=== PATIENT | female | born 1980 | race African-American/Black ===

== ENCOUNTER → 2017-02-17 | Day surgery (SDC) | payer OTHER ==
[2017-02-04 15:16] VITALS: BMI 34.0
[~2017-02-17] VITALS: Ht 175.3 cm; Wt 104.5 kg
[~2017-02-17] MED LIST: LIDOCAINE HCL 2% 2 ML VIAL (20MG/ML) ONE; MIDAZOLAM HCL 1 MG/ML 2ML VIAL ONE; PANT40TA PO; PRENTAB26 PO; PROPOFOL IV EMULSION 10 MG/ML 20 ML VIAL IV ONE; SODIUM CHLORIDE 0.9% 500ML 500 ML IV ONE; VALA500T60 PO
[2017-02-17 14:59] VITALS: Ht 175.3 cm; Wt 104.5 kg
--- NOTE | 2017-02-17 15:47 | Endo History and Physical ---
History & Physical Date of Service: Feb 17, 2017. Chief Complaint: REFLUX DYSPHAGIA Referring Physician: DR Irineo GIVENS History of Present Illness 36 yo female who presents for EGD secondary to GERD and Dysphagia. Past Surgical History Hx Cardiac Surgery: No Hx Internal Defibrillator: No Hx Pacemaker: No Hx Abdominal Surgery: No Hx of Implantable Prosthesis: No Hx Post-Op Nausea and Vomiting: No Hx Cancer Surgery: No Hx Thoracic Surgery: No Hx Orthopedic: No Hx Urinary Tract Surgery: No Family History None Social History Smoking Status: Former Smoker Hx Substance Use: Yes (2008 MARIJUANA) Hx Alcohol Use: Yes (SOCIALLY) Allergies Coded Allergies: Quinine (Verified Allergy, Unknown, swelling, 02/17/17) Current Medications Reported Home Medications Medications Dose Route/Sig Max Daily Dose Days Date Category Vitamin (Prenat Multivit/[place]/Iron/Folic Ac) Tab 1 Tab PO QAM 02/04/17 Reported Protonix (Pantoprazole Sodium) 40 Mg Tab 40 Mg PO QAM 02/04/17 Reported Valtrex (Valacyclovir HCl) 500 Mg Tab 500 Mg PO BID PRN 02/04/17 Reported Vital Signs Weight (Kilograms): 104.55 Height (Feet): 5 Height (Inches): 9 Date Time Temp Pulse Resp B/P Pulse Ox O2 Delivery O2 Flow Rate FiO2 02/17/17 15:11 36.6 69 16 167/83 99 Room Air Physical Exam General Appearance: WD/WN, no apparent distress Respiratory/Chest: Auscultation: breath sounds normal Cardiovascular: Heart Auscultation: RRR Abdomen: Bowel Sounds: normal Inspection & Palpation: soft, non-distended, no tenderness, guarding & rebound Assessment and Plan Assessment: 36 yo female who presents for EGD secondary to GERD and Dysphagia. Plan: Proceed with EGD.
--- NOTE | 2017-02-17 16:06 | GI REPORT ---
Procedure Date: 02/17/2017 3:22 PM Procedure: Upper GI endoscopy Indications: Dysphagia, Gastro-esophageal reflux disease Medicines: Monitored Anesthesia Care Complications: No immediate complications. Estimated Blood Loss: Estimated blood loss: none. Procedure: Pre-Anesthesia Assessment: - Prior to the procedure, a History and Physical was performed, and patient medications and allergies were reviewed. The patient's tolerance of previous anesthesia was also reviewed. The risks and benefits of the procedure and the sedation options and risks were discussed with the patient. All questions were answered, and informed consent was obtained. Prior Anticoagulants: The patient has taken no previous anticoagulant or antiplatelet agents. ASA Grade Assessment: II - A patient with mild systemic disease. After reviewing the risks and benefits, the patient was deemed in satisfactory condition to undergo the procedure. After obtaining informed consent, the endoscope was passed under direct vision. Throughout the procedure, the patient's blood pressure, pulse, and oxygen saturations were monitored continuously. The scope was introduced through the mouth, and advanced to the second part of duodenum. The upper GI endoscopy was accomplished without difficulty. The patient tolerated the procedure well. Findings: No endoscopic abnormality was evident in the esophagus to explain the patient's complaint of dysphagia. It was decided, however, to proceed with dilation at the gastroesophageal junction. A TTS dilator was passed through the scope. Dilation with an 18-19-20 mm balloon (to a maximum balloon size of 20 mm) dilator was performed. The dilation site was examined and showed no change. Localized mild inflammation characterized by congestion (edema) was found in the gastric antrum. Biopsies were taken with a cold forceps for histology. The examined duodenum was normal. Impression: - No endoscopic esophageal abnormality to explain patient's dysphagia. Esophagus dilated. Dilated. - Gastritis. Biopsied. - Normal examined duodenum. Recommendation: - Resume previous diet. - Continue present medications. - Await pathology results. - Return to GI office as previously scheduled. Mino Cornejo, 02/17/2017 4:06:56 PM This report has been signed electronically. Note Initiated On: 02/17/2017 3:22 PM I attest to the content of the Intraoperative Record and orders documented therein, exceptions below
--- NOTE | 2017-02-17 16:07 | Discharge Instructions ---
Endoscopy Patient Instructions Date / Procedure(s) Performed Feb 17, 2017. EGD Allergy Information Coded Allergies: Quinine (Verified Allergy, Unknown, swelling, 02/17/17) Discharge Date / Findings Feb 17, 2017. Esophageal dilation to 20mm Gastritis s/p biopsies Medication Instructions OK to resume all medications today as prescribed. Reported Home Medications Medications Dose Route/Sig Max Daily Dose Days Date Category Vitamin (Prenat Multivit/[place]/Iron/Folic Ac) Tab 1 Tab PO QAM 02/04/17 Reported Protonix (Pantoprazole Sodium) 40 Mg Tab 40 Mg PO QAM 02/04/17 Reported Valtrex (Valacyclovir HCl) 500 Mg Tab 500 Mg PO BID PRN 02/04/17 Reported Provider Instructions Activity Restrictions - No exercising or heavy lifting for 24 hours. - Do not drink alcohol the day of the procedure. - Do not drive a car or operate machinery until the day after the procedure. - Do not make any important decisions or sign important papers in 24 hours after the procedure. Following Day: - Return to full activity which may include returning to work/school. Diet Start your diet with liquids and light foods (jello, soup, juice, toast). Then eat your usual diet if not nauseated. Treatment For Common After Affects For mild abdominal pain, bloating, or excessive gas: - Rest - Eat lightly - Lie on right side Follow-Up Information Follow-up with DR Irineo GIVENS as scheduled Anesthesia Information What You Should Know You have had a procedure that required some medicine to reduce anxiety and discomfort. This treatment is called moderate sedation. After receiving the treatment, you may be sleepy, but you will be able to breathe on your own. The effects of the treatment may last for several hours. Follow these instructions along with Activity/Diet recommendations noted above: * Do NOT do anything where dizziness or clumsiness would be dangerous. * Rest quietly at home today, then you can be up and about tomorrow. * Have a responsible person stay with you the rest of today. * You may have had an I.V. today. If so, you may take the dressing off later today. Recommendations Call your doctor if: * Trouble breathing * Continuous vomiting for more than 24 hours * Temperature above 101 degrees * Severe abdominal pain or bloating * Pain not relieved by pain medicine ordered * There is increased drainage or redness from any incision * A large amount of rectal bleeding greater than 2-3 tablespoons. (If you had a polyp/s removed or have hemorrhoids, a small amount of blood - from the rectum is to be expected.) * You have any unanswered questions or concerns. IN THE EVENT OF A SERIOUS EMERGENCY, GO TO THE NEAREST EMERGENCY ROOM Your discharge instructions were prepared by provider Mino Cornejo. Patient Instructions Signature Page Mohinder Strauss Patient (or Guardian) Signature/Date: I have read and understand the instructions given to me by my caregivers. Caregiver/RN/Doctor Signature/Date: The above-named patient and/or guardian has received patient instructions on this date. + Original Patient Signature Page (only) stays with chart. Please make copy for patient.
--- NOTE | 2017-02-17 16:26 | Anesthesiology Progress Note ---
Anesthesia Post Op Note Date & Time Feb 17, 2017 at 16:26 Vital Signs Pain Intensity: 0 Vital Signs Past 12 Hours Date Time Temp Pulse Resp B/P Pulse Ox O2 Delivery O2 Flow Rate FiO2 02/17/17 16:23 75 20 162/99 99 Room Air 02/17/17 16:08 81 20 119/74 95 Room Air 02/17/17 15:11 36.6 69 16 167/83 99 Room Air Notes Mental Status: alert / awake / arousable, participated in evaluation Pt Amnestic to Procedure: Yes Nausea / Vomiting: adequately controlled Pain: adequately controlled Airway Patency, RR, SpO2: stable & adequate BP & HR: stable & adequate Hydration State: stable & adequate Anesthetic Complications: no major complications apparent
[2017-02-17 16:38] VITALS: BP 144/95; PULSE 78; O2SAT 99
== END | disposition home or self-care (01) ==
LOC: C.GI 14:01
PROVIDERS: ATTEND Internal Medicine
DX: R13.10 Dysphagia, unspecified (principal); K21.9 Gastro-esophageal reflux disease without esophagitis; K29.00 Acute gastritis without bleeding; K29.50 Unspecified chronic gastritis without bleeding; E66.9 Obesity, unspecified; Z87.891 Personal history of nicotine dependence; Z68.34 Body mass index [BMI] 34.0-34.9, adult

== ENCOUNTER → 2017-03-24 | Outpatient (CLI) | payer OTHER ==
[~2017-03-24] MED LIST changes: -LIDOCAINE HCL 2% 2 ML VIAL (20MG/ML) ONE; -MIDAZOLAM HCL 1 MG/ML 2ML VIAL ONE; -PROPOFOL IV EMULSION 10 MG/ML 20 ML VIAL IV ONE; -SODIUM CHLORIDE 0.9% 500ML 500 ML IV ONE
[2017-03-24 15:52] LABS: URINE APPEARANCE CLEAR (CLEAR); URINE BILIRUBIN NEG (NEG); URINE COLOR YELLOW; URINE NITRITE NEG (NEG); URINE SPECIFIC GRAVITY 1.021 (1.000-1.030); UROBILINOGEN NEG (NEG)
[2017-03-24 16:00] LABS: MANUAL MICROSCOPIC REQUIRED? NO; REVIEW REQ? NO
== END | disposition home or self-care (01) ==
LOC: C.LABSPEC 16:27
PROVIDERS: ATTEND Obstetrics & Gynecology
DX: O09.519 Supervision of elderly primigravida, unspecified trimester (principal); Z3A.00 Weeks of gestation of pregnancy not specified

== ENCOUNTER → 2017-04-02 | Outpatient (CLI) | payer OTHER ==
[2017-04-06 04:24] LABS: CHLAMYDIA TRACH RNA*** NOT DETECTED (NOT DETECTED); GC (NEIS GONORRHOEAE)RNA** NOT DETECTED (NOT DETECTED)
== END | disposition home or self-care (01) ==
LOC: C.LABSPEC 15:50
PROVIDERS: ATTEND Obstetrics & Gynecology
DX: O09.511 Supervision of elderly primigravida, first trimester (principal)

== ENCOUNTER → 2017-04-02 | Outpatient (CLI) | payer OTHER ==
[2017-04-02 14:38] LABS: BASO % 0.3 %; BASO ABS # 0.02 K/uL (0-0.2); EOS % 1.5 %; HEMATOCRIT 36.5 % (37-47); IG% 0.2 %; LYMPH % 26.2 %; LYMPH ABS # 1.57 K/uL (1.2-3.4); MEAN CORPUSCULAR HEMOGLOBIN 25.8 pg (25-34); MEAN CORPUSCULAR HGB CONC 34.8 g/dl (32-36); MEAN PLATELET VOLUME 10.2 fL (7.4-10.4); MONO % 6.3 %; NEUT % 65.5 %; PLATELET COUNT 267 K/uL (130-400); RED BLOOD COUNT 4.93 M/uL (4.2-5.4); WHITE BLOOD COUNT 5.99 K/uL (4.8-10.8)
[2017-04-02 15:02] LABS: COMPLETE YES
== END | disposition home or self-care (01) ==
LOC: C.LAB1850 12:36
PROVIDERS: ATTEND Obstetrics & Gynecology
DX: O09.511 Supervision of elderly primigravida, first trimester (principal)

== ENCOUNTER → 2017-04-02 | Outpatient (CLI) | payer OTHER | END | disposition home or self-care (01) | LOC: C.PAPS 16:02 | PROVIDERS: ATTEND Obstetrics & Gynecology | DX: Z12.4 Encounter for screening for malignant neoplasm of cervix (principal) ==

== ENCOUNTER → 2017-04-10 | Outpatient (CLI) | payer OTHER | END | disposition home or self-care (01) | LOC: C.LABSPEC 12:19 | PROVIDERS: ATTEND Registered Nurse | DX: A04.8 Other specified bacterial intestinal infections (principal) ==

== ENCOUNTER 2017-04-25 13:59 | Emergency (ER) | payer OTHER ==
[~2017-04-25] VITALS: Ht 170.2 cm; Wt 105.2 kg
[2017-04-25 14:02] VITALS: TEMP 36.8; Ht 170.2 cm; Wt 105.2 kg
[2017-04-25] MEDS ORDERED: SODIUM CHLORIDE 0.9% 1000ML 1,000 ML IV STA (14:19)
--- NOTE | 2017-04-25 14:29 | EMERGENCY ROOM VISIT NOTE ---
History Report prepared by Anne: Anthony Ramirez Under the Supervision of: Dr. David Alston D.O. First contact with patient: 14:06 Chief Complaint: ED VAG BLEEDING Stated Complaint: 10 WEEKS ,VAGINAL BLEEDING History of Present Illness The patient is a 36 year old female who presents to the Emergency Room with concerns over persistent vaginal bleeding that began roughly 30 minutes prior to arrival. The patient is 10 weeks at this time, and started not noticed some vaginal bleeding, with clots, this afternoon. She did visit with her OBGYN and had an Ultra Sound performed several days prior to this visit. This OBGYN visit was unremarkable and showed a normal early . This is the patient's second , her first was spontaneously aborted at 4 weeks. The patient denies any recent nausea/vomiting, urinary irregularities, or pain in the pelvis. She is currently on Valacyclovir. P: 0 A:1 Source of History: patient Onset: 30 minutes [employer] Position: other (Genitourinary) Quality: other (Vag Bleeding) Timing: other (Persistent) Associated Symptoms: No abdominal pain, No nausea, No urinary symptoms, No vomiting Review of Systems See HPI for pertinent positives & negatives. A total of 10 systems reviewed and were otherwise negative. Past Medical & Surgical Medical Problems: (1) Miscarriage Family History Hypertension Social History Smoking Status: Never Smoker Drug Use: none Marital Status: Housing Status: lives with family Occupation Status: employed Current/Historical Medications Scheduled Multivit/Min/Iron/Fol Ac/Pren ( Vitamin), 1 TAB PO QAM Scheduled PRN Valacyclovir (Valtrex), 500 MG PO BID PRN for PRN Allergies Coded Allergies: Quinine (Verified Allergy, Unknown, swelling, 04/25/17) Physical Exam Vital Signs Date Time Temp Pulse Resp B/P Pulse Ox O2 Delivery O2 Flow Rate FiO2 04/25/17 17:06 77 20 133/80 100 04/25/17 16:11 88 18 141/85 100 Room Air 04/25/17 14:02 36.8 90 20 146/93 100 Room Air Physical Exam GENERAL: Patient is awake, alert, and mildly anxious. She is comfortable appearing. EYES: The conjunctivae are clear. The pupils are round and reactive. EARS, NOSE, MOUTH AND THROAT: The nose is without any evidence of any deformity. Mucous membranes are moist tongue is midline NECK: The neck is nontender and supple. RESPIRATORY: Normal respiratory effort is noted there is no evidence of wheezing rhonchi or rales CARDIOVASCULAR: Regular rate and rhythm noted there no murmurs rubs or gallops normal S1 normal S2 GASTROINTESTINAL: The abdomen is soft. Bowel sounds are present in all quadrants. Abdomen is nontender MUSCULOSKELETAL/EXTREMITIES: There is no evidence of gross deformity full range of motion is noted in the hips and shoulders SKIN: There is no obvious evidence of any rash. There are no petechiae, pallor or cyanosis noted. NEUROLOGIC: Patient is awake alert and oriented x3. 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 FINDINGS: There is a single intrauterine gestational sac, yolk sac, and pole with a crown-rump length of 3.6 cm. This is consistent with a 10 week and 4 day intrauterine gestation. heart rate was 157 bpm. There is a small contraction identified during the beginning of the exam. However, this resolved by the end of the exam. No significant subchorionic hematoma. There is a 4.4 cm fundal fibroid. There ovaries are within normal limits. There is a 1.9 cm left ovarian cyst. The cervix is closed. Trace fluid within the cervical canal. IMPRESSION: 1. A single viable 10 week and 4 day intrauterine gestation. 2. A 4.4 cm fundal fibroid. 3. The ovaries are within normal limits. Electronically signed by: Alvaro Arana M.D. 04/25/2017 4:41 PM Dictated Date/Time: 04/25/2017 4:36 PM Laboratory Results 04/25/17 14:30 Red Blood Count 5.17, Mean Corpuscular Volume 74.3, Mean Corpuscular Hemoglobin 25.1, Mean Corpuscular Hemoglobin Concent 33.9, Mean Platelet Volume 9.2, Neutrophils (%) (Auto) 67.1, Lymphocytes (%) (Auto) 24.8, Monocytes (%) (Auto) 5.8, Eosinophils (%) (Auto) 1.9, Basophils (%) (Auto) 0.1, Neutrophils # (Auto) 4.62, Lymphocytes # (Auto) 1.71, Monocytes # (Auto) 0.40, Eosinophils # (Auto) 0.13, Basophils # (Auto) 0.01 04/25/17 14:30 Test 04/25/17 14:30 White Blood Count 6.89 K/uL (4.8-10.8) Red Blood Count 5.17 M/uL (4.2-5.4) Hemoglobin 13.0 g/dL (12.0-16.0) Hematocrit 38.4 % (37-47) Mean Corpuscular Volume 74.3 fL (80-100) Mean Corpuscular Hemoglobin 25.1 pg (25-34) Mean Corpuscular Hemoglobin Concent 33.9 g/dl (32-36) Platelet Count 265 K/uL (130-400) Mean Platelet Volume 9.2 fL (7.4-10.4) Neutrophils (%) (Auto) 67.1 % Lymphocytes (%) (Auto) 24.8 % Monocytes (%) (Auto) 5.8 % Eosinophils (%) (Auto) 1.9 % Basophils (%) (Auto) 0.1 % Neutrophils # (Auto) 4.62 K/uL (1.4-6.5) Lymphocytes # (Auto) 1.71 K/uL (1.2-3.4) Monocytes # (Auto) 0.40 K/uL (0.11-0.59) Eosinophils # (Auto) 0.13 K/uL (0-0.5) Basophils # (Auto) 0.01 K/uL (0-0.2) RDW Standard Deviation 40.7 fL (36.4-46.3) RDW Coefficient of Variation 15.1 % (11.5-14.5) Immature Granulocyte % (Auto) 0.3 % Immature Granulocyte # (Auto) 0.02 K/uL (0.00-0.02) Prothrombin Time 9.9 SECONDS (9.0-12.0) Prothromb Time International Ratio 0.9 (0.9-1.1) Activated Partial Thromboplast Time 22.5 SECONDS (21.0-31.0) Partial Thromboplastin Ratio 0.9 Urine Color ORANGE Urine Appearance CLEAR (CLEAR) Urine pH 6.0 (4.5-7.5) Urine Specific [place] 1.005 (1.000-1.030) Urine Protein NEG (NEG) Urine Glucose (UA) NEG (NEG) Urine Ketones NEG (NEG) Urine Occult Blood 3+ (NEG) Urine Nitrite NEG (NEG) Urine Bilirubin NEG (NEG) Urine Urobilinogen NEG (NEG) Urine Leukocyte Esterase NEG (NEG) Urine WBC (Auto) 0 /hpf (0-5) Urine RBC (Auto) 5-10 /hpf (0-4) Urine Hyaline Casts (Auto) 0 /lpf (0-5) Urine Epithelial Cells (Auto) 20-30 /lpf (0-5) Urine Bacteria (Auto) NEG (NEG) Urine Yeast (Auto) (NONE PRSENT) Anion Gap 9.0 mmol/L (3-11) Est Creatinine Clear Calc Drug Dose 121.0 ml/min Estimated GFR () 109.1 Estimated GFR (Non- 94.1 BUN/Creatinine Ratio 12.7 (10-20) Calcium Level 8.9 mg/dl (8.5-10.1) Total Bilirubin 0.2 mg/dl (0.2-1) Aspartate Amino Transf (AST/SGOT) 14 U/L (15-37) Alanine Aminotransferase (ALT/SGPT) 20 U/L (12-78) Alkaline Phosphatase 56 U/L (45-117) Total Protein 7.4 gm/dl (6.4-8.2) Albumin 4.1 gm/dl (3.4-5.0) Globulin 3.3 gm/dl (2.5-4.0) Albumin/Globulin Ratio 1.2 (0.9-2) Human Chorionic Gonadotropin, Quant 36380 mIU/mL Laboratory results per my review. Medications Administered Medications (Trade) Dose Ordered Sig/Ivy Route Start Time Stop Time Status Last Admin Dose Admin Sodium Chloride (Nss 1000ml) 1,000 ml @ 999 mls/hr Q1H1M STAT IV 04/25/17 14:19 04/25/17 15:19 DC 04/25/17 14:36 999 MLS/HR Procedure BEDSIDE ULTRA SOUND: Bedside US was performed and showed an intrauterine with good metal movement appreciated. heart tones were appreciated on Doppler. There were mixed echoes present in the uterine cavity, suggestive of a subchorionic hemorrhage. ED Course 1407: The patient was evaluated in room C3. A complete history and physical examination were performed. 1419: Ordered Sodium Chloride 1000 mL @ 999 mL/hr IV. 1656:: Upon reevaluation, the patient is resting in bed. I discussed the results and treatment plan with her. She verbalized agreement of the treatment plan. The patient was discharged home. Medical Decision Medication Reconciliation: I attest that I have personally reviewed the patient' s current medications list. Blood pressure screening: Patient was found to have normal blood pressure on screening and does not require follow-up. Differential diagnosis: Etiologies such as ectopic , dysfunction uterine bleeding, bleeding dyscrasia, trauma, infection, as well as others were entertained. The patient is a 36-year-old female who presented to the emergency department for an evaluation of vaginal bleeding. The patient is currently 10 weeks . She had a previous miscarriage and has never had a full term . The patient did not have a physical exam consistent with an acute surgical abdomen. Bedside ultrasound did reveal a single live and treated however there was some abnormality otherwise noted in the uterine cavity. This reason formal laboratory and radiographic studies were obtained. The patient was found have signs of fibroid uterus on ultrasound. I discussed the patient's laboratory and radiographic studies with her and her significant other. She was encouraged to continue all medications as prescribed and rest. She was also encouraged to follow-up with primary [employer] CENTER RECRUITER physician this week for reevaluation or return to the emergency apartment immediately if symptoms change worsen or if the need arises. Impression Primary Impression: Threatened miscarriage Additional Impression: Vaginal bleeding Scribe Attestation The scribe's documentation has been prepared under my direction and personally reviewed by me in its entirety. I confirm that the note above accurately reflects all work, treatment, procedures, and medical decision making performed by me. Departure Information Dispostion Home / Self-Care Referrals Ryan Salazar M.D. (PCP) Forms HOME CARE DOCUMENTATION FORM, IMPORTANT VISIT INFORMATION, WORK / SCHOOL INSTRUCTIONS Patient Instructions My [facility] Additional Instructions Call your CALL CENTER RECRUITER physician to schedule a follow-up appointment. Avoid any strenuous activity or heavy lifting. Problem Qualifiers
[2017-04-25 14:47] LABS: BASO % 0.1 %; BASO ABS # 0.01 K/uL (0-0.2); COMPLETE YES; EOS % 1.9 %; HEMATOCRIT 38.4 % (37-47); IG% 0.3 %; LYMPH % 24.8 %; LYMPH ABS # 1.71 K/uL (1.2-3.4); MEAN CELL VOLUME 74.3 fL (80-100); MEAN CORPUSCULAR HEMOGLOBIN 25.1 pg (25-34); MEAN CORPUSCULAR HGB CONC 33.9 g/dl (32-36); MEAN PLATELET VOLUME 9.2 fL (7.4-10.4); MONO % 5.8 %; NEUT % 67.1 %; PLATELET COUNT 265 K/uL (130-400); RED BLOOD COUNT 5.17 M/uL (4.2-5.4); WHITE BLOOD COUNT 6.89 K/uL (4.8-10.8)
[2017-04-25 14:52] LABS: URINE APPEARANCE CLEAR (CLEAR); URINE BILIRUBIN NEG (NEG); URINE COLOR ORANGE; URINE EPITHELIAL CELL AUTO 20-30 /lpf (0-5); URINE NITRITE NEG (NEG); URINE SPECIFIC GRAVITY 1.005 (1.000-1.030); UROBILINOGEN NEG (NEG)
[2017-04-25 14:53] LABS: INR 0.9 (0.9-1.1); PARTIAL THROMBOPLASTIN RATIO 0.9; PROTHROMBIN TIME (PATIENT) 9.9 SECONDS (9.0-12.0)
[2017-04-25 15:08] LABS: MANUAL MICROSCOPIC REQUIRED? NO; REVIEW REQ? YES
[2017-04-25 15:13] LABS: BUN/CREATININE RATIO 12.7 (10-20); CALCIUM 8.9 mg/dl (8.5-10.1); CREATININE 0.81 mg/dl (0.60-1.20); POTASSIUM 4.3 mmol/L (3.5-5.1)
[2017-04-25 15:15] LABS: ALB/GLOB RATIO 1.2 (0.9-2)
--- NOTE | 2017-04-25 16:43 | DIAGNOSTIC IMAGING REPORT ---
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 FINDINGS: There is a single intrauterine gestational sac, yolk sac, and pole with a crown-rump length of 3.6 cm. This is consistent with a 10 week and 4 day intrauterine gestation. heart rate was 157 bpm. There is a small contraction identified during the beginning of the exam. However, this resolved by the end of the exam. No significant subchorionic hematoma. There is a 4.4 cm fundal fibroid. There ovaries are within normal limits. There is a 1.9 cm left ovarian cyst. The cervix is closed. Trace fluid within the cervical canal. IMPRESSION: 1. A single viable 10 week and 4 day intrauterine gestation. 2. A 4.4 cm fundal fibroid. 3. The ovaries are within normal limits. Electronically signed by: Alvaro Arana M.D. 04/25/2017 4:41 PM Dictated Date/Time: 04/25/2017 4:36 PM
[2017-04-25 17:06] VITALS: BP 133/80; PULSE 77; O2SAT 100
--- NOTE | 2017-05-03 09:56 | DIAGNOSTIC IMAGING REPORT ---
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 FINDINGS: There is a single intrauterine gestational sac, yolk sac, and pole with a crown-rump length of 3.6 cm. This is consistent with a 10 week and 4 day intrauterine gestation. heart rate was 157 bpm. There is a small contraction identified during the beginning of the exam. However, this resolved by the end of the exam. No significant subchorionic hematoma. There is a 4.4 cm fundal fibroid. There ovaries are within normal limits. There is a 1.9 cm left ovarian cyst. The cervix is closed. Trace fluid within the cervical canal. IMPRESSION: 1. A single viable 10 week and 4 day intrauterine gestation. 2. A 4.4 cm fundal fibroid. 3. The ovaries are within normal limits. Electronically signed by: Alvaro Arana M.D. 04/25/2017 4:41 PM Dictated Date/Time: 04/25/2017 4:36 PM
== END 2017-04-25 15:15 | disposition home or self-care (01) ==
LOC: C.EDB 14:01 → C.EDC 15:15
DX: O20.0 Threatened abortion (principal); Z3A.10 10 weeks gestation of pregnancy; Z82.49 Family history of ischemic heart disease and other diseases of the circulatory system

== ENCOUNTER → 2017-06-07 | Outpatient (CLI) | payer OTHER ==
[~2017-06-07] MED LIST changes: -PANT40TA PO
[2017-06-07 11:57] LABS: GTGD 50 Grams
[2017-06-08 11:59] LABS: AFP CONCENTRATION 60.8 NG/ML; AFP MULTIPLE OF MEDIAN 2.33; AFPTS GESTATIONAL AGE 16.1 WEEKS; AFPTS INSULIN DEP DIABETIC? NO; AFPTS MATERNAL WT 228 LBS; ALPHA-FETOPROTEIN RACE OTHER=O; HISTORY OF NTD NO; REPEAT SAMPLE? NO
== END | disposition home or self-care (01) ==
LOC: C.LAB1850 09:48
PROVIDERS: ATTEND Obstetrics & Gynecology
DX: O09.512 Supervision of elderly primigravida, second trimester (principal); O09.299 Supervision of pregnancy with other poor reproductive or obstetric history, unspecified trimester

== ENCOUNTER → 2017-09-03 | Outpatient (CLI) | payer OTHER ==
[2017-09-03 12:09] LABS: HEMATOCRIT 33.2 % (37-47)
[2017-09-03 13:11] LABS: GTGD 50 Grams
[2017-09-03 14:29] LABS: URINE APPEARANCE CLEAR (CLEAR); URINE BILIRUBIN NEG (NEG); URINE COLOR YELLOW; URINE EPITHELIAL CELL AUTO >30 /lpf (0-5); URINE NITRITE NEG (NEG); URINE PH 5.5 (4.5-7.5); URINE SPECIFIC GRAVITY 1.017 (1.000-1.030); UROBILINOGEN NEG (NEG)
[2017-09-03 14:33] LABS: MANUAL MICROSCOPIC REQUIRED? NO; REVIEW REQ? NO
== END | disposition home or self-care (01) ==
LOC: C.LAB1850 10:53
PROVIDERS: ATTEND Obstetrics & Gynecology
DX: O09.512 Supervision of elderly primigravida, second trimester (principal); Z3A.00 Weeks of gestation of pregnancy not specified

== ENCOUNTER 2017-09-15 08:45 | Outpatient (CLI) | payer OTHER ==
[~2017-09-15] VITALS: Ht 170.2 cm; Wt 101.2 kg
[2017-09-15] MEDS ORDERED: LACTATED RINGER'S 1000ML 1,000 ML IV SCH (09:23)
[2017-09-15] MEDS ORDERED: BETAMETH SOD PHOS/ACETATE IA 6 MG/ML IM ONE (09:30)
[2017-09-15] MEDS ORDERED: MAGNESIUM SULFATE 4GM / WTR 4 GM BAG IV ONE (09:45)
[2017-09-15 09:51] LABS: MEAN CELL VOLUME 73.4 fL (80-100); MEAN CORPUSCULAR HEMOGLOBIN 24.6 pg (25-34); MEAN CORPUSCULAR HGB CONC 33.5 g/dl (32-36); MEAN PLATELET VOLUME 9.6 fL (7.4-10.4); PLATELET COUNT 225 K/uL (130-400); RED BLOOD COUNT 4.63 M/uL (4.2-5.4); WHITE BLOOD COUNT 5.89 K/uL (4.8-10.8)
[2017-09-15] MEDS ORDERED: AMPICILLIN IV 2,000 MG in SODIUM CHLOR 0.9% AD-VAN 100ML 100 ML IV SCH (10:00)
[2017-09-15] MEDS ORDERED: ERYTHROMYCIN IV 250 MG in SODIUM CHLORIDE 0.9% 250ML 250 ML IV SCH (10:00)
[2017-09-15 10:33] VITALS: Ht 170.2 cm; Wt 101.2 kg
== END 2017-09-15 10:55 | disposition short-term general hospital (02) ==
LOC: C.OPB 08:45 → C.LD 08:45 → C.OPB 09:26 → C.LD 09:26 → UNDOADMIN 09:26 → C.OPB 10:55
PROVIDERS: ATTEND Obstetrics & Gynecology
DX: O42.913 Preterm premature rupture of membranes, unspecified as to length of time between rupture and onset of labor, third trimester (principal); O09.523 Supervision of elderly multigravida, third trimester; Z3A.30 30 weeks gestation of pregnancy

== ENCOUNTER → 2017-11-17 | Outpatient (CLI) | payer OTHER | END | disposition home or self-care (01) | LOC: C.PAPS 09:21 | PROVIDERS: ATTEND Obstetrics & Gynecology | DX: Z12.4 Encounter for screening for malignant neoplasm of cervix (principal); D25.9 Leiomyoma of uterus, unspecified ==

== ENCOUNTER 2020-01-13 11:32 | Observation (INO) ==
[2020-01-13] MEDS ORDERED: ONDANSETRON INJ 2 MG/ML 2 ML VIAL IV STA (11:59)
[2020-01-13 12:08] LABS: Basophils # (auto) 0.01 K/uL (0-0.2); Basophils % (auto) 0.2 %; Eosinophils # (auto) 0.24 K/uL (0-0.5); Eosinophils % (auto) 4.9 %; Hematocrit (blood only) 40.4 % (37-47); Hemoglobin 13.4 g/dL (12.0-16.0); Immature Granulocytes # (auto) 0.01 K/uL (0.00-0.02); Immature Granulocytes % (auto) 0.2 %; Lymphocytes # (auto) 1.43 K/uL (1.2-3.4); Mean Corpuscular Hemoglobin 24.8 pg (25-34); Mean Corpuscular Hgb Conc 33.2 g/dL (32-36); Mean Corpuscular Volume 74.8 fL (80-100); Mean Platelet Volume 9.9 fL (7.4-10.4); Monocytes # (auto) 0.31 K/uL (0.11-0.59); Monocytes % (auto) 6.3 %; Neutrophils # (auto) 2.93 K/uL (1.4-6.5); Neutrophils % (auto) 59.4 %; Platelet Count 271 K/uL (130-400); RDW Coefficient of Variation 15.5 % (11.5-14.5); RDW Standard Deviation 42.5 fL (36.4-46.3); White Blood Count 4.93 K/uL (4.8-10.8)
[2020-01-13] MEDS: KETOROLAC TROMETHAMINE 60 MG/2 ML VIAL IM STA ×2 (12:09→12:15)
[2020-01-13] MEDS ORDERED: KETOROLAC 30 MG/ML VIAL IV STA (12:14)
[2020-01-13 12:25] LABS: Albumin Level 3.9 gm/dl (3.4-5.0); BUN Creatinine Ratio 8.8 (10-20); Creatinine Clr Calc Pharmacy 96.9 ml/min; Est GFR (African American) 80.8; Est GFR (Non-African American) 69.7; Potassium 3.6 mmol/L (3.5-5.1)
[2020-01-13 12:28] LABS: Bilirubin,Total 0.3 mg/dl (0.2-1); Total Protein 7.9 gm/dl (6.4-8.2)
--- NOTE | 2020-01-13 12:29 | Emergency Department Note ---
Entered by Genia Marti acting as a scribe for History of Present Illness General Chief complaint: Abdominal Pain Stated complaint: STOMACH PAIN Time Seen by Provider: 01/13/20 11:39 History of Present Illness Provider complaint: RUQ abdominal pain Onset (ago): minute(s) 45 Location: abdomen (RUQ) Severity: moderate Maximum Pain Intensity: 9 Quality: + other (severe spasm) Associated symptoms: + denies other symptoms (urinary symptoms, upper respiratory symptoms) and + other (nausea, ate stromboli for breakfast at 0830, ); no fever/chills This is a 39-year-old female who presents to the ED with a chief complaint of right upper quadrant abdominal pain. The patient states that her symptoms started about 45 minutes prior to arrival. The patient reports associated nausea. She states that she ate stromboli for breakfast around 8:30 AM. She states that the pain comes and goes but at times is rather intense and feels like a severe spasm. She reports history of in the past but no other abdominal surgeries. She denies any urinary symptoms. Denies any fevers or chills. Last normal bowel movement was yesterday. She is finishing her menstrual period. She reports her pain is moderate. Denies any upper res piratory symptoms. Home Medications Home Medications Medication Instructions Recorded Confirmed Type prenat.vits,claude,rmq-akgw-cavul 1 tab PO QAM 05/04/19 01/13/20 History valacyclovir 500 mg tablet 500 mg PO QAM #30 tab 05/04/19 01/13/20 History clobetasol 0.05 % scalp solution 1 appln TOP DAILY #50 ml 11/30/19 01/13/20 Rx labetalol 200 mg tablet 200 mg PO BID #60 tab 01/05/20 01/13/20 Rx Allergies Allergy/AdvReac Type Severity Reaction Status Date / Time quinine Allergy Unknown swelling Verified 01/13/20 12:38 Past Med/Surg History Medical History (Updated 01/13/20 @ 14:14 by Boyd Recinos DO) Acid reflux disease (Chronic) Alopecia (Chronic) Genital herpes Hypertension (Chronic) PROM with onset of labor within 24 hours of rupture Uterine fibroid (Chronic) Surgical History (Updated 12/28/19 @ 15:02 by Celina Wisdom) Hx of section S/P wisdom tooth extraction Family History (Updated 12/28/19 @ 15:01 by Celina Wisdom) Father Hypertension Diabetes Denies family history of Ovarian cancer Breast cancer Colorectal cancer Uterine cancer Social History (Updated 12/28/19 @ 15:01 by Celina Wisdom) Preferred Language: Mauritian Feels Safe at Home: Yes Smoking Status: Never smoker Hx Alcohol Use: Yes Alcohol Intake Frequency Comment: socially Hx Substance Use: No Review of Systems See HPI for pertinent positives & negatives. and A total of 10 systems reviewed and were otherwise negative Physical Exam Vital Signs Vital Signs - 24 hr 01/13/20 11:33 01/13/20 11:45 01/13/20 11:51 Temperature 36.4 C L Temperature Source Oral Pulse Rate 76 77 75 Pulse Rate from SpO2 Sensor Respiratory Rate 18 19 22 Blood Pressure 202/124 H 172/92 H Blood Pressure Mean 150 128 Pulse Oximetry 99 Oxygen Delivery Method Room Air Sepsis Recent Fever Within 48 Hours No Sepsis New/Unexplained Change in Mental Status No Sepsis Action Taken by Nursing No Action Required 01/13/20 12:00 01/13/20 12:15 01/13/20 12:35 Temperature Temperature Source Pulse Rate 72 71 67 Pulse Rate from SpO2 Sensor 76 64 Respiratory Rate 23 16 13 Blood Pressure 167/103 H 153/89 H Blood Pressure Mean 128 116 Pulse Oximetry 95 100 Oxygen Delivery Method Sepsis Recent Fever Within 48 Hours Sepsis New/Unexplained Change in Mental Status Sepsis Action Taken by Nursing 01/13/20 12:45 01/13/20 13:00 01/13/20 13:15 Temperature Temperature Source Pulse Rate 67 67 69 Pulse Rate from SpO2 Sensor 68 64 66 Respiratory Rate 17 18 14 Blood Pressure 170/100 H Blood Pressure Mean 123 Pulse Oximetry 100 97 100 Oxygen Delivery Method Sepsis Recent Fever Within 48 Hours Sepsis New/Unexplained Change in Mental Status Sepsis Action Taken by Nursing 01/13/20 13:30 01/13/20 13:46 01/13/20 14:00 Temperature Temperature Source Pulse Rate 73 83 65 Pulse Rate from SpO2 Sensor 72 66 Respiratory Rate 20 19 Blood Pressure 170/99 H 149/94 H Blood Pressure Mean 140 110 Pulse Oximetry 100 97 Oxygen Delivery Method Sepsis Recent Fever Within 48 Hours Sepsis New/Unexplained Change in Mental Status Sepsis Action Taken by Nursing CONSTITUTIONAL/VITAL SIGNS: Reviewed / noted above. GENERAL: Non-toxic in appearance. INTEGUMENTARY: Warm, dry, and [place]. HEAD: Normocephalic. EYES: without scleral icterus or trauma. ENT/OROPHARYNX: clear and moist. LYMPHADENOPATHY/NECK: Is supple without lymphadenopathy or meningismus. RESPIRATORY: Lungs clear and equal. CARDIOVASCULAR: Regular rate and rhythm. GI/ABDOMEN: Mild tenderness to epigastric region, mild tenderness to right mid abdominal region, significant pain in RUQ. Soft. No organomegaly or pulsatile mass. No rebound or guarding. Normal bowel sounds. EXTREMITIES: Warm and well perfused. BACK: Mild right CVA tenderness. NEUROLOGICAL: Intact without focal deficits. PSYCHIATRIC: normal affect. MUSCULOSKELETAL: Normally developed with good muscle tone. Course Course 1146: Past medical records reviewed. The patient was evaluated in room A02. A complete history and physical exam was performed. 1254: I discussed the patient's case with Dr. Carli Burleson. He will come evaluate the patient. 1311: I updated the patient on the plan. She verbally agrees and understands. Consultations Consultation #1: I discussed the patient's case with Dr. Carli Burleson. He will come evaluate the patient. Time: 12:54 Administered Medications Ioversol (Optiray 320 100ml) 94 ml IV ONCE PRN PRN Reason: Interaction Checking Stop: 01/17/20 13:41 Last Admin: 01/13/20 13:42 Dose: 94 ml Documented by: [id number] Discontinued Medications Ketorolac Tromethamine (Toradol) 60 mg IM NOW STA Stop: 01/13/20 11:57 Last Admin: 01/13/20 12:15 Dose: Not Given Documented by: [id number] Ketorolac Tromethamine (Toradol) 30 mg IV NOW STA Stop: 01/13/20 12:15 Last Admin: 01/13/20 12:16 Dose: 30 mg Documented by: [id number] Ondansetron HCl (Zofran) 4 mg IV NOW STA Stop: 01/13/20 12:00 Last Admin: 01/13/20 12:09 Dose: 4 mg Documented by: [id number] Medical Decision Making Differential Diagnosis Differential diagnosis: Etiologies such as biliary colic, cholecystitis, hepatitis, perihepatitis, pancreatitis, cardiac disease, pancreatitis, gastritis, peptic ulcer disease, appendicitis, ovarian cyst, ovarian torsion, ectopic , pelvic inflammatory disease, cystitis, diverticulitis, mesenteric ischemia, inflammatory bowel disease, ileus, bowel obstruction, aortic pathology, shingles, as well as others were considered. Medical Records Attestation: I reviewed the patient's medical records. Home Medications Current Medication List: was personally reviewed by me Laboratory Data Attestation: I reviewed the patient's lab results. Result diagrams: 01/13/20 11:58 01/13/20 11:58 Lab Results 01/13/20 01/13/20 01/13/20 Range/Units 11:58 11:58 12:55 WBC 4.93 (4.8-10.8) K/uL RBC 5.40 (4.2-5.4) M/uL Hgb 13.4 (12.0-16.0) g/dL Hct 40.4 (37-47) % MCV 74.8 L (80-100) fL MCH 24.8 L (25-34) pg MCHC 33.2 (32-36) g/dL RDW Std Deviation 42.5 (36.4-46.3) fL RDW Coeff of Dieter 15.5 H (11.5-14.5) % Plt Count 271 (130-400) K/uL MPV 9.9 (7.4-10.4) fL Immature Gran % (Auto) 0.2 % Neut % (Auto) 59.4 % Lymph % (Auto) 29.0 % Millard % (Auto) 6.3 % Eos % (Auto) 4.9 % Baso % (Auto) 0.2 % Immature Gran # (Auto) 0.01 (0.00-0.02) K/uL Neut # (Auto) 2.93 (1.4-6.5) K/uL Lymph # (Auto) 1.43 (1.2-3.4) K/uL Millard # (Auto) 0.31 (0.11-0.59) K/uL Eos # (Auto) 0.24 (0-0.5) K/uL Baso # (Auto) 0.01 (0-0.2) K/uL Sodium 140 (136-145) mmol/L Potassium 3.6 (3.5-5.1) mmol/L Chloride 107 (98-107) mmol/L Carbon Dioxide 29 (21-32) mmol/L Anion Gap 4.0 (3-11) BUN 9 (7-18) mg/dl Creatinine 1.02 (0.6-1.2) mg/dl Est Cr Clr Drug Dosing 96.9 ml/min Est GFR ( Amer) 80.8 Est GFR (Non-Af Amer) 69.7 BUN/Creatinine Ratio 8.8 L (10-20) Glucose 105 H (70-99) mg/dl Calcium 9.0 (8.5-10.1) mg/dl Total Bilirubin 0.3 (0.2-1) mg/dl AST 14 L (15-37) U/L ALT 19 (12-78) U/L Alkaline Phosphatase 77 (45-117) U/L Total Protein 7.9 (6.4-8.2) gm/dl Albumin 3.9 (3.4-5.0) gm/dl Globulin 4.0 (2.5-4.0) gm/dl Albumin/Globulin Ratio 1.0 (0.9-2) Lipase 295 (73-393) U/L Urine Test Negative (Negative) Imaging Data Radiologist's Impression: Radiology results as stated below per my review and the radiologist's interpretation: BILIARY ULTRASOUND CLINICAL HISTORY: RUQ abd pain COMPARISON STUDY: No previous studies for comparison. FINDINGS: The pancreas was poorly visualized. No hepatic masses are delineated. Several gallbladder calculi are visualized. There are areas of mild gallbladder wall thickening and trace pericholecystic fluid. There is no intrahepatic biliary ductal dilatation. The common bile duct was equivocally visualized. It appeared slightly echogenic, measured 4 mm. IMPRESSION: 1. Cholelithiasis with areas of focal gallbladder wall thickening and trace pericholecystic fluid. The findings may represent acute cholecystitis. Clinical correlation is advocated. If indicated, a nuclear medicine hepatic biliary study could be obtained to assess for cystic duct patency ACT 112: Negative or not required by law. Electronically signed by: Efren Mascorro M.D. 01/13/2020 12:[address] abd pelvis IV con only CLINICAL HISTORY: rt sided abd pain COMPARISON STUDY: Biliary ultrasound dated 01/13/2020 TECHNIQUE: The patient was scanned in a dynamic helical fashion during intravenous administration of 94 cc of Optiray 320 A dose lowering technique was utilized adhering to the principles of ALARA. CT DOSE: 1044.01 mGycm FINDINGS: Lower chest: The heart is normal in size and configuration, without pericardial effusion. The lung bases and pleural spaces are clear. Liver: No focal hepatic masses are visualized. There is a small amount of portal venous gas within the left lobe. There is minimal central hepatic biliary ductal dilatation. Portal venous gas has a wide differential. Within this differential is acute cholecystitis. Gallbladder: Cholelithiasis. There is a small amount of pericholecystic fluid. The gallbladder is minimally distended. There is an area of focal wall thi ckening involving the anterior wall which measures 7 mm. Spleen: Normal in size and attenuation. Pancreas: Unremarkable. Adrenal glands: Unremarkable. Kidneys: There is symmetric renal cortical enhancement. The kidneys are normal in size without hydronephrosis. Bowel: There are no transition zones to indicate bowel obstruction. There is no acute diverticulitis. The appendix appears normal. There is no bowel pathology to explain the above-mentioned portal venous gas. Peritoneum: There is trace fluid within Morison's pouch. There is no free intraperitoneal air. Vasculature: The abdominal aorta is normal in course and caliber. Adenopathy: None. Pelvic viscera: There is a 4.3 cm uterine mass with rim calcification likely representing a fibroid. Skeletal structures: No destructive osseous lesions are seen. IMPRESSION: 1. Cholelithiasis with a small amount of pericholecystic fluid. Unexplained focal gallbladder wall thickening measuring 7 mm. 2. Unexplained portal venous gas. No bowel wall thickening. No evidence of pneumatosis. No free air. 3. No evidence of bowel obstruction. No evidence of free air. Normal appendix. 4. 43 mm rim calcified uterine mass likely representing a fibroid ACT 112: Negative or not required by law. Electronically signed by: Efren Mascorro M.D. 01/13/2020 2:02 PM Blood Pressure Blood Pressure Findings: Elevated blood pressure MDM Narrative This is a 39-year-old female who presents to the ED with a chief complaint of right upper quadrant abdominal pain. The patient states that her symptoms started about 45 minutes prior to arrival. The patient reports associated nausea. She states that she ate Trimboli for breakfast around 8:30 AM. She states that the pain comes and goes but at times is rather intense and feels like a severe spasm. She reports history of in the past but no other abdominal surgeries. She denies any urinary symptoms. Denies any fevers or chills. Last normal bowel movement was yesterday. She is finishing her menstrual period. She reports her pain is moderate. Denies any upper respiratory symptoms. Her physical exam reveals significant tenderness in the right upper quadrant. Mild tenderness in the epigastric area and right mid abdomen. There is also noted to be some mild right CVA tenderness. The patient is noted to be hypertensive. She does have a history of hypertension and takes labetalol. She did take her medication this morning. The patient's ultrasound and CT scan are suggestive of acute cholecystitis. CBC and chemistry panel on are unremarkable. test was negative. Lipase is negative. The patient was seen in the emergency department by Dr. Jackson. He will see the patient for further inpatient evaluation and care. Impression & Plan Acute calculous cholecystitis Discharge Plan Visit Data Chief Complaint: Abdominal Pain Stated Complaint: STOMACH PAIN ED Provider: Boyd Recinos ED Midlevel Provider: Ghassan Wolf Discharge Problem: Acute calculous cholecystitis Patient Disposition: Being Evaluated by Surgeon Condition: Good Forms Stand Alone Forms: Call Back Authorization, [facility], Important Visit Information Prescriptions Prescriptions: No Action labetalol 200 mg tablet 200 mg PO BID Qty: 60 RF: 2 valacyclovir 500 mg tablet 500 mg PO QAM Qty: 30 RF: 0 prenat.vits,claude,lhh-ruul-ydilm tablet 1 tab PO QAM RF: 0 clobetasol 0.05 % solution 1 appln TOP DAILY Qty: 50 RF: 2 Referrals Referrals: Kylah Justin MD [Primary Care Provider] - The scribe's documentation has been prepared under my direction and personally reviewed by me in its entirety. I confirm that the note above accurately reflects all work, treatment, procedures, and medical decision making performed by me.
--- NOTE | 2020-01-13 12:41 | Ultrasound Report ---
BILIARY ULTRASOUND CLINICAL HISTORY: RUQ abd pain COMPARISON STUDY: No previous studies for comparison. FINDINGS: The pancreas was poorly visualized. No hepatic masses are delineated. Several gallbladder c alculi are visualized. There are areas of mild gallbladder wall thickening and trace pericholecystic fluid. There is no intrahepatic biliary ductal dilatation. The common bile duct was equivocally visua lized. It appeared slightly echogenic, measured 4 mm. IMPRESSION: 1. Cholelithiasis with areas of focal gallbladder wall thickening and trace pericholecystic fluid. Th e findings may represent acute cholecystitis. Clinical correlation is advocated. If indicated, a nucl ear medicine hepatic biliary study could be obtained to assess for cystic duct patency ACT 112: Negative or not required by law. Electronically signed by: Efren Mascorro M.D. 01/13/2020 12:40 PM
[2020-01-13 13:15] LABS: Pregnancy Test, Urine Negative (Negative)
[2020-01-13] MEDS ORDERED: IOVERSOL 100ml IV PRN (13:42)
--- NOTE | 2020-01-13 14:03 | CT Scan Report ---
CT abd pelvis IV con only CLINICAL HISTORY: rt sided abd pain COMPARISON STUDY: Biliary ultrasound dated 01/13/2020 TECHNIQUE: The patient was scanned in a dynamic helical fashion during intravenous administration of 94 cc of Optiray 320 A dose lowering technique was utilized adhering to the principles of ALARA. CT DOSE: 1044.01 mGycm FINDINGS: Lower chest: The heart is normal in size and configuration, without pericardial effusion. The lung ba ses and pleural spaces are clear. Liver: No focal hepatic masses are visualized. There is a small amount of portal venous gas within th e left lobe. There is minimal central hepatic biliary ductal dilatation. Portal venous gas has a wide differential. Within this differential is acute cholecystitis. Gallbladder: Cholelithiasis. There is a small amount of pericholecystic fluid. The gallbladder is min imally distended. There is an area of focal wall thickening involving the anterior wall which measure s 7 mm. Spleen: Normal in size and attenuation. Pancreas: Unremarkable. Adrenal glands: Unremarkable. Kidneys: There is symmetric renal cortical enhancement. The kidneys are normal in size without hydron ephrosis. Bowel: There are no transition zones to indicate bowel obstruction. There is no acute diverticulitis. The appendix appears normal. There is no bowel pathology to explain the above-mentioned portal venou s gas. Peritoneum: There is trace fluid within Morison's pouch. There is no free intraperitoneal air. Vasculature: The abdominal aorta is normal in course and caliber. Adenopathy: None. Pelvic viscera: There is a 4.3 cm uterine mass with rim calcification likely representing a fibroid. Skeletal structures: No destructive osseous lesions are seen. IMPRESSION: 1. Cholelithiasis with a small amount of pericholecystic fluid. Unexplained focal gallbladder wall th ickening measuring 7 mm. 2. Unexplained portal venous gas. No bowel wall thickening. No evidence of pneumatosis. No free air. 3. No evidence of bowel obstruction. No evidence of free air. Normal appendix. 4. 43 mm rim calcified uterine mass likely representing a fibroid ACT 112: Negative or not required by law. Electronically signed by: Efren Mascorro M.D. 01/13/2020 2:02 PM
--- NOTE | 2020-01-13 14:13 | Emergency Department Note ---
ED Visit Note Patient was seen with Dr. Recinos, please see his note for details. . Resident Activity Tracking Resident Involvement: Resident Care Provided Care Provided: Adult ED
--- NOTE | 2020-01-13 14:52 | History & Physical Report ---
Date of Service January 13, 2020 Assessment & Plan (1) Acute calculous cholecystitis: This patient has right upper quadrant abdominal pain with a CT scan and ultrasound showing cholelithiasis and some wall thickening. There is also some pericholecystic fluid seen on the CT scan. I have recommended a laparoscopic cholecystectomy. I explained the possible need to convert to an open procedure. I discussed the possible complications and answered her questions. She has signed a consent form. History of Present Illness Chief Complaint: Abdominal pain Primary Care Provider: Kylah Justin MD This is a 39-year-old female who presents to the emergency room with a complaint of pain centered in the right upper quadrant that is radiating around her side into her back. The pain began at about 11 AM this morning. She is never had pain like this before. She had nausea but did not vomit. She has been having diarrhea but she has diarrhea when she has her menstrual bleeding which is ending today. She has not had fever or chills. She ate breakfast at 8:00 this morning and had the onset of pain at 11:00. The pain does not radiate into the lower abdomen or into the left side. There is no indigestion or heartburn with it. Allergies Allergy/AdvReac Type Severity Reaction Status Date / Time quinine Allergy Unknown swelling Verified 01/13/20 12:38 Home Medications Home Medications Medication Instructions Recorded Confirmed Type prenat.vits,claude,kwe-xzae-isecf 1 tab PO QAM 05/04/19 01/13/20 History valacyclovir 500 mg tablet 500 mg PO QAM #30 tab 05/04/19 01/13/20 History clobetasol 0.05 % scalp solution 1 appln TOP DAILY #50 ml 11/30/19 01/13/20 Rx labetalol 200 mg tablet 200 mg PO BID #60 tab 01/05/20 01/13/20 Rx Past Med/Surg History Medical History (Updated 01/13/20 @ 14:14 by Boyd Recinos DO) Acid reflux disease (Chronic) Alopecia (Chronic) Genital herpes Hypertension (Chronic) PROM with onset of labor within 24 hours of rupture Uterine fibroid (Chronic) Surgical History (Updated 12/28/19 @ 15:02 by Celina Wisdom) Hx of section S/P wisdom tooth extraction Family History (Updated 12/28/19 @ 15:01 by Celina Wisdom) Father Hypertension Diabetes Denies family history of Ovarian cancer Breast cancer Colorectal cancer Uterine cancer Social History (Updated 12/28/19 @ 15:01 by Celina Wisdom) Preferred Language: Thai Feels Safe at Home: Yes Smoking Status: Never smoker Hx Alcohol Use: Yes Alcohol Intake Frequency Comment: socially Hx Substance Use: No Review of Systems Review of Systems: All systems reviewed & are unremarkable except as noted in HPI & below Physical Exam Constitutional: no acute distress Neck: trachea midline Respiratory: normal respiratory effort, lungs clear to auscultation Cardiovascular: Rate/Rhythm: regular rate and regular rhythm Gastrointestinal (Abdomen): Inspection/Auscultation: normal bowel sounds; abdomen not distended Percussion/Palpation: + abdomen tender (Right upper quadrant with deep palpation) and abdomen soft; no abdominal mass Skin: no rashes, warm and dry Lymphatic: no cervical lymphadenopathy Results & Data Vital Signs (Past 12 Hours) Vital Signs Temp Pulse Resp BP Pulse Ox 01/13/20 14:00 65 19 149/94 H 97 01/13/20 13:46 83 01/13/20 13:30 73 20 170/99 H 100 01/13/20 13:15 69 14 100 01/13/20 13:00 67 18 170/100 H 97 01/13/20 12:45 67 17 100 01/13/20 12:35 67 13 153/89 H 100 01/13/20 12:15 71 16 95 01/13/20 12:00 72 23 167/103 H 01/13/20 11:51 75 22 01/13/20 11:45 77 19 172/92 H 01/13/20 11:33 36.4 C L 76 18 202/124 H 99 Laboratory Results 01/13/20 01/13/20 01/13/20 Range/Units 12:55 11:58 11:58 WBC 4.93 (4.8-10.8) K/uL RBC 5.40 (4.2-5.4) M/uL Hgb 13.4 (12.0-16.0) g/dL Hct 40.4 (37-47) % MCV 74.8 L (80-100) fL MCH 24.8 L (25-34) pg MCHC 33.2 (32-36) g/dL RDW Std Deviation 42.5 (36.4-46.3) fL RDW Coeff of Dieter 15.5 H (11.5-14.5) % Plt Count 271 (130-400) K/uL MPV 9.9 (7.4-10.4) fL Immature Gran % (Auto) 0.2 % Neut % (Auto) 59.4 % Lymph % (Auto) 29.0 % [place] % (Auto) 6.3 % Eos % (Auto) 4.9 % Baso % (Auto) 0.2 % Immature Gran # (Auto) 0.01 (0.00-0.02) K/uL Neut # (Auto) 2.93 (1.4-6.5) K/uL Lymph # (Auto) 1.43 (1.2-3.4) K/uL [place] # (Auto) 0.31 (0.11-0.59) K/uL Eos # (Auto) 0.24 (0-0.5) K/uL Baso # (Auto) 0.01 (0-0.2) K/uL Sodium 140 (136-145) mmol/L Potassium 3.6 (3.5-5.1) mmol/L Chloride 107 (98-107) mmol/L Carbon Dioxide 29 (21-32) mmol/L Anion Gap 4.0 (3-11) BUN 9 (7-18) mg/dl Creatinine 1.02 (0.6-1.2) mg/dl Est Cr Clr Drug Dosing 96.9 ml/min Est GFR ( Amer) 80.8 Est GFR (Non-Af Amer) 69.7 BUN/Creatinine Ratio 8.8 L (10-20) Glucose 105 H (70-99) mg/dl Calcium 9.0 (8.5-10.1) mg/dl Total Bilirubin 0.3 (0.2-1) mg/dl AST 14 L (15-37) U/L ALT 19 (12-78) U/L Alkaline Phosphatase 77 (45-117) U/L Total Protein 7.9 (6.4-8.2) gm/dl Albumin 3.9 (3.4-5.0) gm/dl Globulin 4.0 (2.5-4.0) gm/dl Albumin/Globulin Ratio 1.0 (0.9-2) Lipase 295 (73-393) U/L Urine Test Negative (Negative) Diagnostic Findings BILIARY ULTRASOUND CLINICAL HISTORY: RUQ abd pain COMPARISON STUDY: No previous studies for comparison. FINDINGS: The pancreas was poorly visualized. No hepatic masses are delineated. Several gallbladder calculi are visualized. There are areas of mild gallbladder wall thickening and trace pericholecystic fluid. There is no intrahepatic biliary ductal dilatation. The common bile duct was equivocally visualized. It appeared slightly echogenic, measured 4 mm. IMPRESSION: 1. Cholelithiasis with areas of focal gallbladder wall thickening and trace pericholecystic fluid. The findings may represent acute cholecystitis. Clinical correlation is advocated. If indicated, a nuclear medicine hepatic biliary study could be obtained to assess for cystic duct patency CT abd pelvis IV con only CLINICAL HISTORY: rt sided abd pain COMPARISON STUDY: Biliary ultrasound dated 01/13/2020 TECHNIQUE: The patient was scanned in a dynamic helical fashion during intravenous administration of 94 cc of Optiray 320 A dose lowering technique was utilized adhering to the principles of ALARA. CT DOSE: 1044.01 mGycm FINDINGS: Lower chest: The heart is normal in size and configuration, without pericardial effusion. The lung bases and pleural spaces are clear. Liver: No focal hepatic masses are visualized. There is a small amount of portal venous gas within the left lobe. There is minimal central hepatic biliary ductal dilatation. Portal venous gas has a wide differential. Within this differential is acute cholecystitis. Gallbladder: Cholelithiasis. There is a small amount of pericholecystic fluid. The gallbladder is minimally distended. There is an area of focal wall thickening involving the anterior wall which measures 7 mm. Spleen: Normal in size and attenuation. Pancreas: Unremarkable. Adrenal glands: Unremarkable. Kidneys: There is symmetric renal cortical enhancement. The kidneys are normal in size without hydronephrosis. Bowel: There are no transition zones to indicate bowel obstruction. There is no acute diverticulitis. The appendix appears normal. There is no bowel pathology to explain the above-mentioned portal venous gas. Peritoneum: There is trace fluid within Morison's pouch. There is no free intraperitoneal air. Vasculature: The abdominal aorta is normal in course and caliber. Adenopathy: None. Pelvic viscera: There is a 4.3 cm uterine mass with rim calcification likely representing a fibroid. Skeletal structures: No destructive osseous lesions are seen. IMPRESSION: 1. Cholelithiasis with a small amount of pericholecystic fluid. Unexplained focal gallbladder wall thickening measuring 7 mm. 2. Unexplained portal venous gas. No bowel wall thickening. No evidence of pneumatosis. No free air. 3. No evidence of bowel obstruction. No evidence of free air. Normal appendix. 4. 43 mm rim calcified uterine mass likely representing a fibroid
--- NOTE | 2020-01-13 15:04 | Anesthesiology Consultation ---
Date of Service January 13, 2020 Assessment & Plan (1) Encounter for pre-operative examination: Chart Review Chart Review: Acceptable Risk for Surgery History Surgery Operation Date: 01/13/20 14:55 Proposed Procedures p Laparoscopic Cholecystectomy - Wesley Jackson MD Height/Weight Height: 5 ft 9 in Weight: 106 kg Allergies Allergy/AdvReac Type Severity Reaction Status Date / Time quinine Allergy Unknown swelling Verified 01/13/20 12:38 Medications Home Medications Medication Instructions Recorded Confirmed Last Taken prenat.vits,claude,inc-rebd-esgul 1 tab PO QAM 05/04/19 01/13/20 01/13/20 valacyclovir 500 mg tablet 500 mg PO QAM #30 tab 05/04/19 01/13/20 01/13/20 clobetasol 0.05 % scalp solution 1 appln TOP DAILY #50 ml 11/30/19 01/13/20 01/12/20 labetalol 200 mg tablet 200 mg PO BID #60 tab 01/05/20 01/13/20 01/13/20 Active Medications Generic Name Dose Route Start Last Admin Trade Name Freq PRN Reason Stop Dose Admin Ioversol 94 ml 01/13/20 13:42 01/13/20 13:42 Optiray 320 100ml IV 01/17/20 13:41 94 ml ONCE PRN Administration Interaction Checking NPO Date Last Intake of Fluids: 01/13/20 Time Last Intake of Fluids: 08:30 Date Last Intake of Solids: 01/13/20 Time Last Intake of Solids: 08:30 Past Medical History Medical History Acid reflux disease (Chronic) Alopecia (Chronic) Genital herpes Hypertension (Chronic) PROM with onset of labor within 24 hours of rupture Uterine fibroid (Chronic) Past Family History Family History Father Hypertension Diabetes Denies family history of Ovarian cancer Breast cancer Colorectal cancer Uterine cancer Past Surgical History Surgical History Hx of section S/P wisdom tooth extraction Social History Smoking Status: Never smoker Hx Alcohol Use: Yes Hx Substance Use: No Physical Exam Vital Signs Last Vital Signs Temp 36.4 C L 01/13/20 11:33 Pulse 69 01/13/20 15:00 Resp 19 01/13/20 15:00 BP 144/81 H 01/13/20 14:57 Pulse Ox 99 01/13/20 14:57 Testing Laboratory Results 01/13/20 11:58 01/13/20 11:58 Urine Test Negative (Negative) 01/13/20 12:55 01/13/20 12:55 Urine Test Negative
[2020-01-13] MEDS ORDERED: BUPIVACAINE 0.5 % 5 MG/1 ML MPF 30ML VIAL ONE (17:47)
[2020-01-13] MEDS ORDERED: HEPARIN (PORCINE) 1000 UNIT/ML 10 ML (CATH LAB USE ONLY) ONE (17:47)
[2020-01-13] MEDS ORDERED: CEFAZOLIN 250 MG/ML 1 GM VIAL ONE (17:47)
[2020-01-13] MEDS ORDERED: fentaNYL citrate 100 MCG/2 ML VIAL ONE ×2 (17:54→18:34)
[2020-01-13] MEDS ORDERED: MIDAZOLAM HCL 1 MG/ML 2ML VIAL ONE (17:54)
[2020-01-13] MEDS ORDERED: ATROPINE SULFATE 0.1 MG/ML 10ML SYR IV PRN (18:02)
[2020-01-13] MEDS ORDERED: LABETALOL HCL IV 5 MG/ML 20ML IV PRN (18:02)
[2020-01-13] MEDS ORDERED: KETOROLAC 30 MG/ML VIAL IV PRN (18:02)
[2020-01-13] MEDS ORDERED: HYDROmorphone INJ 1 MG/ML SYRINGE IV PRN (18:02)
[2020-01-13] MEDS ORDERED: ONDANSETRON INJ 2 MG/ML 2 ML VIAL IV PRN ×2 (18:02→21:55)
[2020-01-13] MEDS ORDERED: PROMETHAZINE HCL 6.25 MG in SODIUM CHLORIDE 0.9% 50 ML IV PRN (18:02)
[2020-01-13] MEDS ORDERED: ROCURONIUM BROMIDE 10 MG/ML 5 ML VIAL ONE (18:32)
[2020-01-13] MEDS ORDERED: DEXAMETHASONE SOD INJ 4 MG/ML VIAL ONE (18:32)
[2020-01-13] MEDS ORDERED: LIDOCAINE HCL 2% 2 ML VIAL/AMP(20MG/ML) INFIL ONE (18:32)
[2020-01-13] MEDS ORDERED: PROPOFOL IV EMULSION 10 MG/ML 20 ML VIAL IV ONE (18:32)
[2020-01-13] MEDS ORDERED: ONDANSETRON INJ 2 MG/ML 2 ML VIAL ONE ×2 (18:32→21:01)
[2020-01-13] MEDS ORDERED: NEOSTIGMINE METHYLSULFATE 5 MG/5 ML SYR ONE (18:32)
[2020-01-13] MEDS ORDERED: GLYCOPYRROLATE 0.2 MG/ML VIAL ONE (18:32)
[2020-01-13] MEDS ORDERED: CEFAZOLIN 3000MG 72.5 ML IV ONE (18:38)
--- NOTE | 2020-01-13 19:23 | Post Operative Brief Note ---
Immediate Post Op Note v1 Date of Surgery January 13, 2020 Pre & Post Diagnosis Operation Date: 01/13/20 14:55 Pre-Op Diagnosis: Cholecystitis Post-Op Diagnosis: Cholecystitis I identified the patient and participated in the time-out.: Yes Procedure Operation Date: 01/13/20 14:55 Actual Procedures p Laparoscopic Cholecystectomy - Wesley Jackson MD Surgeon Wesley Jackson MD Residential Supervisor None Estimated Blood Loss 5 Findings Consistent with Post-Op Diagnosis Specimens Gallbladder and contents Anesthesia Type General Complications none
[2020-01-13] MEDS ORDERED: HydrALAZINE HCL 20 MG/ML VIAL IV STA ×2 (20:32→20:59)
[2020-01-13] MEDS ORDERED: HydrALAZINE HCL 20 MG/ML VIAL ONE (20:36)
[2020-01-13] MEDS ORDERED: KETOROLAC 30 MG/ML VIAL ONE (20:54)
--- NOTE | 2020-01-13 21:02 | Anesthesiology Progress Note ---
Date of Service January 13, 2020 Anesthesia Post Procedure Vital Signs Vital Signs: Temp Pulse Pulse Resp BP BP Pulse Ox 01/13/20 20:51 36.4 C L 82 18 163/112 H 97 01/13/20 20:40 78 18 171/102 H 95 01/13/20 20:26 36.4 C L 60 18 169/108 H 98 01/13/20 20:15 36.4 C L 61 18 176/97 H 97 01/13/20 20:07 36.2 C L 62 18 158/99 H 99 01/13/20 19:55 67 16 146/99 H 98 01/13/20 19:35 36.0 C L 62 16 160/91 H 99 01/13/20 17:30 68 18 150/100 H 98 01/13/20 16:22 60 18 154/104 H 98 01/13/20 15:00 69 19 01/13/20 14:57 73 15 144/81 H 99 01/13/20 14:45 73 20 99 01/13/20 14:32 80 16 100 01/13/20 14:15 65 16 98 01/13/20 14:00 65 19 149/94 H 97 01/13/20 13:46 83 01/13/20 13:30 73 20 170/99 H 100 01/13/20 13:15 69 14 100 01/13/20 13:00 67 18 170/100 H 97 01/13/20 12:45 67 17 100 01/13/20 12:35 67 13 153/89 H 100 01/13/20 12:15 71 16 95 01/13/20 12:00 72 23 167/103 H 01/13/20 11:51 75 22 01/13/20 11:45 77 19 172/92 H 01/13/20 11:33 36.4 C L 76 18 202/124 H 99 Pain Intensity Abdomen: Pain Intensity: 0 Transfer of Care Handoff Completed per policy Notes Mental Status: alert / awake / arousable Patient Amnestic to Procedure: Yes Nausea / Vomiting: adequately controlled Pain: adequately controlled Airway Patency, RR, SpO2: stable & adequate BP & HR: stable & adequate Hydration State: stable & adequate Anesthetic Complications: no major complications apparent
[2020-01-13] MEDS ORDERED: MoRPHine SULFATE 4 MG/ML 1 ML CARP\\VIAL IV PRN (21:55)
[2020-01-13] MEDS ORDERED: OXYCODONE/ACETAMINOPHEN 5mg/325mg TAB PO PRN (21:55)
[2020-01-13] MEDS ORDERED: SODIUM CHLORIDE 0.9% 1000ML 1,000 ML IV SCH (21:55)
--- NOTE | 2020-01-13 22:10 | Operative Report (OR) ---
DATE OF OPERATION: 01/13/2020 PREOPERATIVE DIAGNOSIS: Cholelithiasis, acute cholecystitis. POSTOPERATIVE DIAGNOSIS: Cholelithiasis, acute cholecystitis. PROCEDURE: Laparoscopic cholecystectomy. SURGEON: Wesley Jackson MD CLINICAL RESEARCH ASSISTANT: None. FINDINGS: The gallbladder was mildly dilated. The wall did not appear to be thickened. There was a large stone within it. There was a lot of edema surrounding the gallbladder, especially in the plane between the gallbladder and the liver. The cystic duct was not dilated. The transverse and ascending colons were identified as was the appendix and they were normal. The visible bowel appeared normal. The liver was of normal size and contour. TECHNIQUE: The patient was given a general anesthetic and the area was prepped and draped in the usual sterile fashion. The skin and subcutaneous tissue in the infraumbilical area were anesthetized with 0.5% Marcaine. Skin incision was made and was carried down through the subcutaneous tissue to the fascia which was grasped with 2 Alexa clamps and incised between. The peritoneum was identified, incised, and the introducer was placed bluntly. The abdomen was then insufflated to a pressure of 15 mmHg with carbon dioxide. The upper midline, midclavicular, and anterior axillary introducer sites were chosen and the skin, subcutaneous tissue, fascia, and peritoneum were anesthetized with 0.5% Marcaine. Skin incision was made and the introducers were placed under direct vision. Traction was placed on the gallbladder beginning at the lateral aspect of the infundibulum and neck. The peritoneum was opened and peeled towards the common bile duct. Similar dissection was then carried over the anterior aspect of the infundibulum and neck and then the triangle of Calot was opened. The gallbladder was dissected away from the liver on the lateral and medial sides and I was then able to identify the cystic duct. Additional dissection of connective tissue and some dilated lymphatics were peeled away. This allowed me to create an adequate window and identify with confidence the cystic duct gallbladder junction. Three clips were placed on the proximal cystic duct, one near the junction with the gallbladder and it was divided. The gallbladder infundibulum and neck were elevated and further dissection was carried out posterior to that where the cystic artery was identified. It was isolated, clamped, and divided. The gallbladder was then peeled off the liver bed using electrocautery. It was placed into an Endobag and brought out through the upper midline incision where I had to open the gallbladder and crush and extract the stone in order to extract the gallbladder within the bag, but that was accomplished. The introducer was replaced. The liver edge was elevated. Then the subdiaphragmatic and subhepatic spaces were irrigated. The irrigation was removed and that was repeated until the return was clear. The transverse colon, ascending colon and appendix were then visualized. The gallbladder bed of the liver was again inspected and there was no bleeding. The gas was allowed to escape and the introducers were removed. The fascia of the umbilical introducer site was closed with interrupted 0 Vicryl and the skin of all the incisions was closed with 4-0 Monocryl in either an interrupted or running subcuticular fashion. The skin was cleansed, dried, benzoin placed, Steri-Strips applied. The estimated blood loss was 5 mL. Sponge, needle and instrument counts were correct prior to closure. The patient tolerated the surgical procedure without complication and was transferred to recovery. I attest to the content of the Intraoperative Record and any orders documented therein. Any exception s are noted below.
[2020-01-13] MEDS: CLOBETASOL~ORDER AWAITING ACTION SCH ×2 (22:14→23:55)
[2020-01-13] MEDS: LABETALOL HCL 200 MG TAB PO SCH (22:51)
[2020-01-14] MEDS: CLOBETASOL~ORDER AWAITING ACTION SCH (08:31)
[2020-01-14] MEDS: LABETALOL HCL 200 MG TAB PO SCH (08:32)
[2020-01-14] MEDS ORDERED: PRENATAL VITAMIN 1 TAB PO SCH (09:00)
--- NOTE | 2020-01-14 10:04 | Surgery Progress Note ---
Date of Service January 14, 2020 Assessment & Plan (1) Acute calculous cholecystitis: Postoperative day 1 status post laparoscopic cholecystectomy Doing well postoperatively Can discharge to home Discussed postoperative activity restrictions Follow-up in 2 weeks Subjective Postoperative day 1 status post laparoscopic cholecystectomy Preoperative pain is resolved Having mild postsurgical discomfort Passing flatus Tolerated regular diet Physical Exam Gastrointestinal (Abdomen): Inspection/Auscultation: normal bowel sounds and + abdominal surgical incision (Clean, dry and intact); abdomen not distended Percussion/Palpation: + abdomen tender (Incisional only) and abdomen soft Results & Data Vital Signs (Past 12 Hours) Vital Signs Temp Pulse Pulse Resp BP BP Pulse Ox 01/14/20 07:00 36.8 C 72 16 128/77 99 01/14/20 03:07 36.8 C 101 H 16 105/67 94 01/14/20 00:45 37.0 C 92 H 16 108/66 96 01/13/20 23:50 37.0 C 104 H 18 135/87 94 01/13/20 22:47 36.9 C 98 H 20 134/89 95 01/13/20 22:18 36.7 C 104 H 17 135/92 96
--- NOTE | 2020-01-17 11:29 | Discharge Summary ---
Date of Service January 17, 2020 Admission HPI Per Admitting Provider This is a 39-year-old female who presents to the emergency room with a complaint of pain centered in the right upper quadrant that is radiating around her side into her back. The pain began at about 11 AM this morning. She is never had pain like this before. She had nausea but did not vomit. She has been having diarrhea but she has diarrhea when she has her menstrual bleeding which is ending today. She has not had fever or chills. She ate breakfast at 8:00 this morning and had the onset of pain at 11:00. The pain does not radiate into the lower abdomen or into the left side. There is no indigestion or heartburn with it. Principal Diagnosis Acute calculous Cholecystitis Discharge Data Allergies Allergy/AdvReac Type Severity Reaction Status Date / Time quinine Allergy Unknown swelling Verified 01/13/20 12:38 Consultations 01/13/20 14:11 ED Decision to Admit Stat Procedures Performed Operation Date: 01/13/20 14:55 Actual Procedures p Laparoscopic Cholecystectomy - Wesley Jackson MD Ordered Studies 01/13/20 12:00 US gallbladder Stat 01/13/20 13:33 CT abd pelvis IV con only Stat Hospital Course (1) Acute calculous cholecystitis: Patient was taken to operating room for laparoscopic cholecystectomy possible open by Dr. Jackson. Patient found to have acute cholecystitis and cholelithiasis. Patient tolerated procedure well. Was transferred to recovery then to medical/surgical floor for postoperative care. Postoperative day 1 vitals stable, afebrile, pain controlled. Diet was advanced as tolerated. Patient was discharged home on POD # 1 in stable condition. Total Time Total Time Spent Total Time Spent (In Minutes): 20 Total Time Includes: Examination of the Patient, Discharge Planning and Medication Reconciliation Discharge Plan Discharge Items Patient Disposition: Home - Self-Care Reason For Visit: CHOLECYSTITIS Discharge Diagnosis: Same Condition on Discharge: Good Activity: As commented below Non-emergency contact: Surgeon Call non-emergency contact if: your temperature is above 101.5 and your wound has increased redness Follow-up/Referrals: Kylah Justin MD [Primary Care Provider] - Wesley Jackson MD [Physician] - 02/01/20 9:00 am (Please arrive for your appointment by 8:45p.m. bring insurance card and photo ID. If you need to reschedule this appointment, please call [phone].) Diet: Regular Addtl Attending Provider Instructions: Post-Surgical ~Discharge Instructions Activity Recommendations: - lifting limitation: (10 pounds for 2 weeks), - exercise/sex/sports limit: (nonstrenuous for 2 weeks), - driving or machine use limit: (none for 1 week), - Shower/bathe limit: (may shower beginning tomorrow) Diet: - Resume previous diet SPECIAL CARE INSTRUCTIONS: - May shower in 24 hours. Let water run over area and pat dry. - Leave steri strips on for one week. - Call the surgeon's office with any questions or concerns - - (ex. temperature higher than 101 degrees F, excessive bleeding or pain). MEDICATIONS: - Resume previous medications unless instructed otherwise by your surgeon. - Ibuprofen 600 mg every 6 hours with food - Percocet 1 every 4 hours, as needed for pain FOLLOW UP VISIT: - If not already scheduled, please call the office to schedule a two week follow-up appointment. Office number Pending Studies at Discharge: Yes Studies:: Pathology Stand-Alone Forms: Call Back Authorization, [facility], Smoking Cessation, Important Visit Information Medications and DC Order Prescriptions: New oxycodone-acetaminophen [Percocet] 5-325 mg Tablet 1 tab PO Q4H PRN (Reason: pain) Qty: 5 RF: 0 Continued labetalol 200 mg tablet 200 mg PO BID Qty: 60 RF: 2 prenat.vits,claude,hmg-kmaq-mnhxl tablet 1 tab PO QAM RF: 0 clobetasol 0.05 % solution 1 appln TOP DAILY Qty: 50 RF: 2 No Action valacyclovir 500 mg tablet See Rx Instructions .ROUTE .COMPLEX Qty: 30 RF: 12 Discharge Orders: Discharge Order (Routine); Ordered 01/14/20 Ordered By: Wesley Jackson Admission Data Admit Date/Time: 01/13/20 21:55 Attending Provider: Wesley Jackson Admit Provider: Wesley Jackson Primary Care Provider: Kylah Justin Other Providers: Wesley Jackson Other Interventions: Discharge Summary Assessment (RN) Last Done: 01/14/20 10:14 DC Date/Time DO NOT enter until pt leaves facility: 01/14/20 11:03
== END 2020-01-14 11:03 | disposition home or self-care (01) ==
LOC: ED 11:32 → ASU 17:50 → 3W 17:50

== ENCOUNTER 2021-11-06 14:02 | Inpatient (IN) ==
--- NOTE | 2021-11-05 09:45 | Anesthesiology Consultation ---
Date of Service November 05, 2021 Assessment & Plan (1) Encounter for pre-operative examination: - COVID screening: Per assessment on 11/05: Travel screen negative, no known COVID-19 positive contacts or current COVID-19 related symptoms. Patient vaccjhony osborne. [place]03 ([place] was [place]. - Cholecystectomy (01/13/20): Grade view 1, Serrato#2, ETT 7.5 at [facility] Chart Review Chart Review: data entry assistant initiated History Surgery Operation Date: 11/07/21 07:30 Proposed Procedures p Section in LD (Delivery of Baby throught Abdominal Incision) - Charisse Villafana DO Height/Weight Height: 5 ft 7.5 in Weight: 107.955 kg Allergies Allergy/AdvReac Type Severity Reaction Status Date / Time quinine Allergy Intermediate swelling Verified 11/05/21 09:09 Medications Home Medications Medication Instructions Recorded Confirmed Last Taken prenat.vits,claude,jla-flsy-qdaym 1 tab PO QPM 05/04/19 11/05/21 09/21/21 08:00 albuterol sulfate 90 mcg/actuation 2 puff INHALATION Q6H PRN #8.5 g 08/19/21 11/05/21 08/29/21 08:00 aerosol inhaler aspirin 81 mg tablet 81 mg PO DAILY 11/05/21 11/05/21 Unknown valacyclovir 500 mg tablet 500 mg PO QPM 11/05/21 11/05/21 Unknown Past Medical History Medical History Advanced maternal age in multigravida Alopecia Asthma Controlled Genital herpes No current outbreaks H. pylori infection Remote hx (2016) Hypertension No current meds Migraine Sickle cell trait Uterine fibroid Past Family History Family History Father Hypertension Diabetes Daughter Sickle-cell trait Mother Sickle-cell trait Denies family history of Ovarian cancer Breast cancer Colorectal cancer Uterine cancer Past Surgical History Surgical History Family history of reaction to anesthesia Father > slow to wake History of esophagogastroduodenoscopy (EGD) Hx of section x1 S/P laparoscopic cholecystectomy Cholecystectomy (01/13/20): Grade view 1, Serrato#2, ETT 7.5 at [facility] [place] teeth removed Social History Smoking Status: Current every day smoker tobacco type: cigarettes Do You Dip or Chew Tobacco: No Smoking End Date: A TEENAGER ONLY Hx Alcohol Use: No alcohol intake frequency: holidays/special occasions only Hx Substance Use: No substance use type: does not use
[2021-11-06] MEDS ORDERED: CITRIC ACID/SODIUM CITRATE 15 ML UDC PO SCH (14:47)
[2021-11-06] MEDS ORDERED: LACTATED RINGER'S 1,000 ML IV SCH (15:00)
[2021-11-06 15:10] LABS: Basophils # (auto) 0.01 K/uL (0-0.2); Basophils % (auto) 0.2 %; Eosinophils # (auto) 0.07 K/uL (0-0.5); Eosinophils % (auto) 1.4 %; Hematocrit (blood only) 34.7 % (37-47); Hemoglobin 11.5 g/dL (12.0-16.0); Immature Granulocytes # (auto) 0.01 K/uL (0.00-0.02); Immature Granulocytes % (auto) 0.2 %; Lymphocytes # (auto) 0.94 K/uL (1.2-3.4); Lymphocytes % (auto) 18.6 %; Mean Corpuscular Hemoglobin 25.3 pg (25-34); Mean Corpuscular Hgb Conc 33.1 g/dL (32-36); Mean Corpuscular Volume 76.4 fL (80-100); Monocytes # (auto) 0.37 K/uL (0.11-0.59); Monocytes % (auto) 7.3 %; Neutrophils # (auto) 3.66 K/uL (1.4-6.5); Neutrophils % (auto) 72.3 %; Platelet Count 235 K/uL (130-400); RDW Standard Deviation 45.1 fL (36.4-46.3); Red Blood Count 4.54 M/uL (4.2-5.4); White Blood Count 5.06 K/uL (4.8-10.8)
[2021-11-06] MEDS ORDERED: OXYTOCIN 10 UNITS/ML VIAL ONE ×4 (17:32→19:16)
[2021-11-06] MEDS ORDERED: MoRPHine SULFATE PF 1 MG/ML 10 ML AMP/VIAL ONE (17:34)
--- NOTE | 2021-11-06 17:39 | History & Physical Report ---
Date of Service November 06, 2021 Assessment & Plan (1) Chronic hypertension affecting : Plan: I discussed with patient that recommendation is for delivery - did not discover this until I saw her today in the office for her pre-op visit, and that while testing is reassuring, the safest option would be to proceed with delivery vs waiting until previously scheduled CS tomorrow. Patient desires delivery tonight - will proceed to OR. I reviewed consent with patient in office in detail. (2) Previous delivery affecting , antepartum: Admission and Anticipated Discharge Date Admission Date: November 06, 2021 History of Present Illness Chief Complaint: repeat section Primary Care Provider: Kylah Justin MD 41yo @ 39 04/04, repeat section. AMA>40@del *Anatomy Scan @ 20wks * Echo 22-24wks - Normal ECHO *Growth scan @32wks *Weekly NST's @36 wks *Twice weekly NST @38wks *Deliver by 41 wks CHTN--on labetolol *Baby ASA daily start 12-28 wks, continue until delivery *wkly NST's @32wks and twice wkly @36 wks *Serial Growth US @ 24 (doppler only if abnml) *Baseline 24hr urine (additioinal PRN)--151mg akh *weekly SADIE's @ 32wk6D *Deliver [id number] Prior delivery @ 33 weeks prom at 30 weeks, hmc for three weeks then delivered offered [place]--considering (akh) - declines (SLN) Previous --ltcs (k), 2 fibroids (fundus and left), dense adhesions of the rectum to post utx C/S SCHEDULED FOR 11/07/[address] BLACKWOOD AND DR. WELLER ASSIST NEEDS COVID TEST ON 11/05/2021-ORDERED Fibroid uterus--one prominent 5cm right SS fibroid measured in 01/18 -stable on anatomy US - described as ant IM Obesity *BMI 35 or >At start of preg, growth US @ 32wks HSV Sickle Cell Trait--fob tested and not a carrier Covid vaccine --MOderna, second dose in January. Flu shot given 08/21/21 SB Allergies Allergy/AdvReac Type Severity Reaction Status Date / Time quinine Allergy Intermediate swelling Verified 11/06/21 14:46 Home Medications Medication Instructions Recorded Confirmed Type prenat.vits,claude,icn-usyk-nlnkk 1 tab PO QPM 05/04/19 11/06/21 History albuterol sulfate 90 mcg/actuation 2 puff INHALATION Q6H PRN #8.5 g 08/19/21 11/06/21 Rx aerosol inhaler aspirin 81 mg tablet 81 mg PO DAILY 11/05/21 11/06/21 History valacyclovir 500 mg tablet 500 mg PO QPM 11/05/21 11/06/21 History Patient History Medical History Advanced maternal age in multigravida Alopecia Asthma Controlled Genital herpes No current outbreaks H. pylori infection Remote hx (2016) Hypertension No current meds Migraine Sickle cell trait Uterine fibroid Surgical History Family history of reaction to anesthesia Father > slow to wake History of esophagogastroduodenoscopy (EGD) Hx of section x1 S/P laparoscopic cholecystectomy Cholecystectomy (01/13/20): Grade view 1, Serrato#2, ETT 7.5 at [facility] [place] teeth removed Family History Father Hypertension Diabetes Daughter Sickle-cell trait Mother Sickle-cell trait Denies family history of Ovarian cancer Breast cancer Colorectal cancer Uterine cancer Social History (Updated 03/24/21 @ 11:23 by Eli Cowan) Smoking Status: Never smoker Smoking End Date: A TEENAGER ONLY; Second Hand Exposure: No; Do You Dip or Chew Tobacco: No; Hx Alcohol Use: No Hx Substance Use: No Preferred Language: Arabic Communication Ability: Effective Visual Impairment: No Limitations Hearing Ability: Normal Refrigeration Engineer Required: No Beliefs That Will Affect Care: None marital status: marital status details: Yamil (42) [phone] Current Living Situation: Family Current Living Situation Comment: lives with spouse, daughter, parents, no pets current occupational status: employed current occupation: [employer] Other Information That Helps Us Care for You: No Feels Safe at Home: Yes Safety Concerns: Feels Safe At This Time Assistive Devices: None Review of Systems All systems reviewed & are unremarkable except as noted in HPI & below Physical Exam Constitutional: WD/WN, vitals as above Respiratory: normal respiratory effort, lungs clear to auscultation no respiratory distress Cardiovascular: Rate/Rhythm: regular rate and regular rhythm Gastrointestinal (Abdomen): Inspection/Auscultation: abdomen normal to inspection Percussion/Palpation: abdomen soft; abdomen nontender Gravid. No s/s chorio or abruption. Skin: no rashes, warm and dry Psychiatric: A+Ox3, euthymic affect Results & Data ([facility]) Vital Signs (Past 12 Hours) Vital Signs Temp Pulse Resp BP 11/06/21 17:25 90 129/80 11/06/21 14:09 36.8 C 20 11/06/21 14:07 75 133/84 Coding Level of Care Code None Diagnoses Chronic hypertension affecting O10.919 Previous delivery affecting , antepartum O34.219
[2021-11-06] MEDS ORDERED: MoRPHine SULFATE PF 1 MG/ML 10 ML AMP/VIAL INT SPINAL ONE (17:40)
[2021-11-06] MEDS ORDERED: NALOXONE HCL 1 MG in SODIUM CHLORIDE 0.9% 1000ML 1,000 ML IV PRN (17:40)
[2021-11-06] MEDS ORDERED: ONDANSETRON INJ 2 MG/ML 2 ML VIAL IV PRN (17:40)
[2021-11-06] MEDS ORDERED: NALOXONE HCL 0.08 MG in SYRINGE 1.8 ML IV PRN (17:40)
[2021-11-06] MEDS ORDERED: PROMETHAZINE HCL 6.25 MG in SODIUM CHLORIDE 0.9% 50 ML IV PRN (17:40)
[2021-11-06] MEDS ORDERED: KETOROLAC 30 MG/ML VIAL IV PRN (17:40)
[2021-11-06] MEDS ORDERED: HYDROmorphone INJ 0.5 MG/0.5 ML SYR IV PRN (17:40)
[2021-11-06] MEDS ORDERED: NALOXONE HCL 0.4 MG/1 ML VIAL/CARP IV PRN (17:40)
[2021-11-06] MEDS ORDERED: NALBUPHINE HCL INJ 10 MG/ML AMP IV PRN (17:40)
[2021-11-06] MEDS ORDERED: LACTATED RINGER'S 500 ML IV PRN (17:40)
[2021-11-06] MEDS ORDERED: diphenhydrAMINE 50 MG/ML VIAL IV PRN (17:40)
[2021-11-06] MEDS ORDERED: ePHEDrine sulfate 50 MG/ML AMP IV PRN (17:40)
[2021-11-06] MEDS ORDERED: MEPERIDINE HCL 25 MG/ML CARP/VIAL IV PRN (17:40)
[2021-11-06] MEDS ORDERED: MoRPHine SULFATE 2 MG/ML CARP IV PRN (17:40)
--- NOTE | 2021-11-06 17:40 | Anesthesiology Consultation ---
Date of Service November 06, 2021 Assessment & Plan Chart Review Chart Review: Acceptable Risk for Surgery and Patient NOT seen in Pre Admission Testing Consults Requested none ASA ASA2 Proposed Anesthesia Anesthesia Type: Spinal (+intrathecal narcotics) Risk / Benefits Reviewed With: PT / POA / Parent / Guardian, Accepts Plan and Informed Consent Obtained History Surgery Operation Date: 11/06/21 14:35 Proposed Procedures p Section in LD(Bilateral) - Charisse Villafana DO Operation Date: 11/07/21 07:30 Proposed Procedures p Section (Delivery of Baby Through Abdominal Incision) - Charisse Villafana DO Height/Weight Height: 5 ft 8 in Weight: 106.594 kg Allergies Allergy/AdvReac Type Severity Reaction Status Date / Time quinine Allergy Intermediate swelling Verified 11/06/21 14:46 Medications Home Medications Medication Instructions Recorded Confirmed Last Taken prenat.vits,claude,vua-toes-fnesg 1 tab PO QPM 05/04/19 11/06/21 09/21/21 08:00 albuterol sulfate 90 mcg/actuation 2 puff INHALATION Q6H PRN #8.5 g 08/19/21 11/06/21 08/29/21 08:00 aerosol inhaler aspirin 81 mg tablet 81 mg PO DAILY 11/05/21 11/06/21 Unknown valacyclovir 500 mg tablet 500 mg PO QPM 11/05/21 11/06/21 Unknown NPO Date Last Intake of Fluids: 11/06/21 Time Last Intake of Fluids: 13:30 Last Intake of Fluids Comment: water Date Last Intake of Solids: 11/05/21 Time Last Intake of Solids: 19:00 Past Medical History Medical History Advanced maternal age in multigravida Alopecia Asthma Controlled Genital herpes No current outbreaks H. pylori infection Remote hx (2017) Hypertension No current meds Migraine Sickle cell trait Uterine fibroid Exercise / Class Metabolic Activity II 4-5 Yardwork/Stairs/Walk up hill Past Family History Family History Father Hypertension Diabetes Daughter Sickle-cell trait Mother Sickle-cell trait Denies family history of Ovarian cancer Breast cancer Colorectal cancer Uterine cancer Past Surgical History Surgical History Family history of reaction to anesthesia Father > slow to wake History of esophagogastroduodenoscopy (EGD) Hx of section x1 S/P laparoscopic cholecystectomy Cholecystectomy (01/13/20): Grade view 1, Serrato#2, ETT 7.5 at [facility] [place] teeth removed Past Anesthesia History No Hx of Anesthesia Complications and No Family Hx of Anesthesia Complications History of PONV No Hx of PONV and No Hx of Motion Sickness Social History Smoking Status: Never smoker tobacco type: cigarettes Do You Dip or Chew Tobacco: No Smoking End Date: A TEENAGER ONLY Hx Alcohol Use: No alcohol intake frequency: holidays/special occasions only Hx Substance Use: No substance use type: does not use Physical Exam Vital Signs Last Vital Signs Temp 36.8 C 11/06/21 14:09 Pulse 90 11/06/21 17:25 Resp 20 11/06/21 14:09 BP 129/80 11/06/21 17:25 ENMT Mouth: no dentition abnormality Thyromental Distance: > or= 3.5 Finger Breadths Mallampati Class: II Neck normal visual inspection Respiratory normal respiratory effort Auscultation: lungs clear to auscultation bilaterally Cardiovascular Rate/Rhythm: regular rate and regular rhythm Psychiatric Orientation: alert Testing Laboratory Results 11/06/21 14:57 Blood Type B Positive 11/06/21 14:57 Antibody Screen NEGATIVE 11/06/21 14:57
[2021-11-06] MEDS ORDERED: DC INTRASPINAL MORPHINE SCH (17:45)
[2021-11-06] MEDS ORDERED: SODIUM CHLORIDE 0.9% 1000ML 1,000 ML IV SCH (17:45)
[2021-11-06] MEDS ORDERED: NO NARCOTICS OR SEDATIVES SCH (17:45)
[2021-11-06] MEDS ORDERED: ONDANSETRON INJ 2 MG/ML 2 ML VIAL ONE (18:03)
[2021-11-06] MEDS ORDERED: PHENYLEPHRINE 100MCG/ML 5ML SYR ONE (18:03)
[2021-11-06] MEDS ORDERED: ePHEDrine sulfate 50 MG/ML SYR ONE (18:08)
[2021-11-06] MEDS ORDERED: KETOROLAC 30 MG/ML VIAL ONE (18:10)
[2021-11-06] MEDS ORDERED: SUPERCREAM 0.870% 15 GM JAR EXT PRN (19:16)
[2021-11-06] MEDS ORDERED: SENNA 8.6 MG TAB PO PRN (19:16)
[2021-11-06] MEDS ORDERED: BENZOCAINE 20% AER SPR 82.5 GM CAN EXT PRN (19:16)
[2021-11-06] MEDS ORDERED: MAGNESIUM HYDROXIDE SUSP 30 ML UDC PO PRN (19:16)
[2021-11-06] MEDS ORDERED: HYDROCORTISONE ACETATE 25 MG SUPP PR PRN (19:16)
[2021-11-06] MEDS ORDERED: DIPHTHERIA/TETANUS/PERTUSSIS 0.5 ML SYR/VIAL IM ONE (19:16)
--- NOTE | 2021-11-06 19:29 | Operative Report ---
PG Post Operative Report Pre & Post Diagnosis Operation Date: 11/06/21 14:35 Pre-Op Diagnosis: 1. Chronic hypertension 2. History of section x1 Post-Op Diagnosis: 1. Chronic hypertension 2. History of section x1 3. Bicornate Uterus I identified the patient and participated in the time-out.: Yes Procedure Operation Date: 11/06/21 14:35 Actual Procedures Repeat low transverse Section in for Live female at 1821(Bilateral) - Charisse Villafana DO Surgeon Charisse Villafana DO Racecar Driver Fer Sheth MD Estimated Blood Loss 600 Findings See Below Viable female . APGARS 8/9. Weight 7#6 Normal appearing ovaries. Uterus is bicornuate, baby was in right horn. Left horn is underdeveloped, with a cavity approximately 1 x 4cm. Single cervix. Subserosal fibroids. Significant adhesive disease, with rectum adhered to posterior uterus. Specimens Placenta, cord blood, cord gas. Drains sheehan, clear yellow Anesthesia Type Spinal Complications none Disposition Accompanied Patient To Recovery: No Indications 41yo @ 39 5/7, h/o section x 1, chronic hypertension, advanced maternal age. Description of Procedure The patient was seen in her labor and delivery room, risks benefits and alternatives to surgery were reviewed. Informed consent obtained in office. Questions were answered. She was taken to the operating room, spinal anesthesia was administered. She was then prepared and draped in the usual sterile fashion in the supine position with a leftward tilt. Timeout was confirmed. A Pfannenstiel skin incision was made through the prior scar with a scalpel, and carried through to the underlying layer of fascia. Fascia was nicked at mid line, and this incision was extended bilaterally. The superior aspect of the fascial incision was grasped with Alexa clamps x2, elevated off the underlying rectus abdominis muscles, and dissected sharply and bluntly. In similar fashion, the inferior aspect of the fascial incision was dissected. The rectus abdominis muscles were , and the peritoneum was entered bluntly digitally. This was extended bilaterally. Bladder flap was not visible, and location for hysterotomy was high above bladder. Using a new scalpel, a low transverse uterine incision was created. Clear amniotic fluid noted. The was delivered from a cephalic presentation. The head delivered, followed by shoulders and body. Spontaneous cry on the field. The cord was doubly clamped and cut, and the was handed off to the waiting post closing specialist. A segment was retained for cord gases. Cord blood was obtained. The placenta was delivered spontaneously intact. The uterus was exteriorized, and cleared of all clots and debris. Please see findings section. The hysterotomy incision was reapproximated using 0 Vicryl in a running locked stitch. A second layer of the same suture was used to imbricate the incision. Posterior uterus was evaluated and bowel adhesion to posterior uterus noted. Just above this, there was a bleeding vessel. A figure of eight 0-vicryl stitch was used in an attempt to obtain hemostasis, however this was unsuccessful. Therefore, FloSeal was used at the site for excellent hemostasis. The uterus was returned to the abdomen, and gutters were cleared of clots and debris. The remainder of the FloSeal was used across the hysterotomy, and this achieved excellent hemostasis. Excellent hemostasis was observed throughout the pelvis. The fascial incision was reapproximated using 0 Vicryl in a running stitch. The subcutaneous tissue was irrigated, and reapproximated using 2-0 plain gut in a running stitch. The skin was reapproximated using 4-0 Vicryl in a running s ubcuticular stitch. Steri-Strips and a bandage were applied. The patient tolerated the procedure well, and will be taken to the recovery area in stable and good condition. I attest to the content of the Intraoperative Record and any orders documented therein. Any exceptions are noted below. OB Procedure Charges 74629
--- NOTE | 2021-11-06 19:41 | Anesthesiology Progress Note ---
Date of Service November 06, 2021 Anesthesia Post Procedure Vital Signs Vital Signs: Temp Pulse Resp BP Pulse Ox 11/06/21 19:39 66 113/56 L 11/06/21 19:37 71 99 11/06/21 19:32 81 95 11/06/21 19:29 75 107/61 11/06/21 17:25 90 129/80 11/06/21 14:09 36.8 C 20 11/06/21 14:07 75 133/84 Transfer of Care Handoff Completed per policy Notes Mental Status: alert / awake / arousable Nausea / Vomiting: adequately controlled Pain: adequately controlled Airway Patency, RR, SpO2: stable & adequate BP & HR: stable & adequate Hydration State: stable & adequate Neuraxial Anesthesia: was administered and sensory block is resolving Anesthetic Complications: no major complications apparent and Pt Satisfied with anesthetic care
[2021-11-06] MEDS: OXYTOCIN 30 UNITS in LACTATED RINGER'S 1,000 ML IV SCH (20:33)
[2021-11-06] MEDS: SIMETHICONE 80 MG CHEW PO SCH (22:05)
[2021-11-07] MEDS: OXYTOCIN 30 UNITS in LACTATED RINGER'S 1,000 ML IV SCH (04:51)
--- NOTE | 2021-11-07 06:14 | Obstetrical Progress Note ---
Date of Service November 07, 2021 Assessment & Plan (1) Encounter for care and examination after delivery: Plan: 41yo POD 1 s/p repeat LTCS at 39 weeks 5 days -Continue routine care -Vitals reviewed- HDS, afebrile -GBS neg -Encourage ambulation, regular diet -Pain control with ibuprofen, acetaminophen PRN -Encourage -Hgb 9.9 -discharge likely tomorrow -F/u in 6 weeks with OB after discharge Admission and Anticipated Discharge Date Admission Date: November 06, 2021 Subjective Ambulation: not yet Voiding: sheehan in, draining well Passing Gas: not yet BM: not yet Diet Tolerance: fluids Lochia: small Feeding Type: and bottle feeding Current Pain Level(1-10): 0 Review of Systems Review of Systems: Denies fevers/chills. Denies dyspnea, cough. Denies chest pain. Denies breast pain or discharge. Denies headache. Denies back pain. Denies nausea, vomiting. Physical Exam Physical Exam: General: Alert, oriented, no acute distress Cardiac: Regular rate and rhythm, normal S1, S2. No murmurs appreciated. Respiratory: Clear to auscultation, symmetric chest rise and fall. No wheezes or crackles. No increased work of breathing or accessory muscle use Abdomen: Soft, nontender, nondistended. Fundus firm and palpable at umbilicus. No guarding or rebound. Skin: bandages removed, steri strips intact, incision site healing well with no signs of infection Extremities: Warm, dry. No lower extremity edema, erythema or swelling. Results & Data ([facility]) Vital Signs (Past 12 Hours) Vital Signs Temp Pulse Pulse Pulse Resp BP BP 11/07/21 06:02 18 11/07/21 05:00 18 11/07/21 04:20 36.6 C 75 18 131/89 11/07/21 04:00 18 11/07/21 03:00 18 11/07/21 02:00 18 11/07/21 01:00 18 11/07/21 00:00 18 11/06/21 23:45 36.3 C L 74 18 134/80 11/06/21 23:00 18 11/06/21 22:30 36.4 C L 55 L 18 11/06/21 21:37 61 11/06/21 21:34 60 11/06/21 21:32 64 11/06/21 21:30 37.1 C 68 18 127/91 11/06/21 21:27 79 11/06/21 21:23 61 11/06/21 21:22 67 11/06/21 21:17 74 11/06/21 21:12 65 11/06/21 21:10 60 11/06/21 21:07 56 L 11/06/21 21:02 66 11/06/21 21:00 72 18 144/86 H 11/06/21 20:57 63 11/06/21 20:52 63 11/06/21 20:47 71 11/06/21 20:42 78 11/06/21 20:37 60 11/06/21 20:32 73 11/06/21 20:31 59 L 128/80 11/06/21 20:30 36.7 C 18 11/06/21 20:27 59 L 11/06/21 20:22 59 L 11/06/21 20:19 57 L 137/78 11/06/21 20:17 78 11/06/21 20:12 69 11/06/21 20:10 18 11/06/21 20:09 59 L 127/73 11/06/21 20:07 63 11/06/21 20:02 72 11/06/21 20:00 18 11/06/21 19:59 85 126/73 11/06/21 19:57 75 11/06/21 19:52 82 11/06/21 19:50 71 18 124/64 11/06/21 19:47 73 11/06/21 19:42 74 11/06/21 19:40 18 11/06/21 19:39 66 113/56 L 11/06/21 19:37 71 11/06/21 19:32 81 11/06/21 19:30 36.6 C 18 11/06/21 19:29 75 107/61 BP Pulse Ox 11/07/21 06:02 91 11/07/21 05:00 96 11/07/21 04:20 93 11/07/21 04:00 94 11/07/21 03:00 95 11/07/21 02:00 94 11/07/21 01:00 96 11/07/21 00:00 96 11/06/21 23:45 95 11/06/21 23:00 95 11/06/21 22:30 137/69 98 11/06/21 21:37 98 11/06/21 21:34 94 11/06/21 21:32 95 11/06/21 21:30 98 11/06/21 21:27 97 11/06/21 21:23 94 11/06/21 21:22 95 11/06/21 21:17 97 11/06/21 21:12 96 11/06/21 21:10 94 11/06/21 21:07 96 11/06/21 21:02 97 11/06/21 21:00 97 11/06/21 20:57 96 11/06/21 20:52 96 11/06/21 20:47 95 11/06/21 20:42 97 11/06/21 20:37 99 11/06/21 20:32 96 11/06/21 20:31 11/06/21 20:30 97 11/06/21 20:27 98 11/06/21 20:22 98 11/06/21 20:19 11/06/21 20:17 97 11/06/21 20:12 96 11/06/21 20:10 98 11/06/21 20:09 11/06/21 20:07 98 11/06/21 20:02 96 11/06/21 20:00 98 11/06/21 19:59 11/06/21 19:57 97 11/06/21 19:52 98 11/06/21 19:50 98 11/06/21 19:47 99 11/06/21 19:42 99 11/06/21 19:40 97 11/06/21 19:39 11/06/21 19:37 99 11/06/21 19:32 95 11/06/21 19:30 99 11/06/21 19:29 Resident Activity Tracking Resident Involvement: Resident Care Provided Care Provided: OB Delivery
[2021-11-07 07:17] LABS: Hematocrit (blood only) 30.5 % (37-47); Hemoglobin 9.9 g/dL (12.0-16.0); Mean Corpuscular Hemoglobin 24.8 pg (25-34); Mean Corpuscular Hgb Conc 32.5 g/dL (32-36); Mean Corpuscular Volume 76.4 fL (80-100); Mean Platelet Volume 10.9 fL (7.4-10.4); Platelet Count 232 K/uL (130-400); Red Blood Count 3.99 M/uL (4.2-5.4); White Blood Count 8.24 K/uL (4.8-10.8)
[2021-11-07 07:18] LABS: Basophils # (auto) 0.01 K/uL (0-0.2); Basophils % (auto) 0.1 %; Eosinophils % (auto) 1.2 %; Immature Granulocytes # (auto) 0.01 K/uL (0.00-0.02); Immature Granulocytes % (auto) 0.1 %; Lymphocytes # (auto) 0.83 K/uL (1.2-3.4); Lymphocytes % (auto) 10.1 %; Monocytes # (auto) 0.47 K/uL (0.11-0.59); Monocytes % (auto) 5.7 %; Neutrophils # (auto) 6.82 K/uL (1.4-6.5); Neutrophils % (auto) 82.8 %; RBC Morphology Unremarkable
[2021-11-07] MEDS: DOCUSATE SODIUM 100 MG CAP PO SCH ×3 (08:33→22:00)
[2021-11-07] MEDS: FERROUS SULFATE 325 MG TAB PO SCH (08:33)
[2021-11-07] MEDS: SIMETHICONE 80 MG CHEW PO SCH ×4 (08:33→20:40)
[2021-11-07] MEDS: PRENATAL VITAMIN 1 TAB PO SCH (08:33)
[2021-11-07] MEDS ORDERED: LACTATED RINGER'S 1,000 ML IV SCH (11:30)
[2021-11-07] MEDS ORDERED: diphenhydrAMINE 50 MG/ML VIAL IV PRN (11:40)
[2021-11-07] MEDS ORDERED: ONDANSETRON INJ 2 MG/ML 2 ML VIAL IV PRN (11:40)
[2021-11-07] MEDS ORDERED: diphenhydrAMINE Capsule 25 MG CAP PO PRN (11:40)
[2021-11-07] MEDS ORDERED: MEPERIDINE HCL 50 MG/ML CARP IV PRN (11:40)
[2021-11-07] MEDS ORDERED: KETOROLAC 30 MG/ML VIAL IV PRN (11:40)
[2021-11-07] MEDS ORDERED: PROMETHAZINE HCL 25 MG in SODIUM CHLORIDE 0.9% 50 ML IV PRN (11:40)
[2021-11-07] MEDS: IBUPROFEN 600 MG TAB PO PRN ×2 (12:56→20:44)
[2021-11-07] MEDS: oxyCODONE/ACETAMINOPHEN 5mg/325mg TAB PO PRN ×2 (12:57→20:44)
[2021-11-08] MEDS: oxyCODONE/ACETAMINOPHEN 5mg/325mg TAB PO PRN (05:14)
[2021-11-08] MEDS: IBUPROFEN 600 MG TAB PO PRN (05:15)
[2021-11-08 06:27] LABS: Hematocrit (blood only) 27.5 % (37-47)
--- NOTE | 2021-11-08 08:54 | Obstetrical Progress Note ---
Date of Service November 08, 2021 Assessment & Plan (1) Encounter for care and examination after delivery: Plan: 41yo POD 2 s/p repeat LTCS at 39 weeks 5 days -Continue routine care -Abdominal binder ordered for worsening abdomen/pelvic pain; will also schedule motrin and tylenol, oxy PRN -Vitals reviewed- HDS, afebrile -GBS neg -Encourage ambulation, regular diet -Pain control with ibuprofen, acetaminophen PRN -Encourage -Hgb 9.0 -discharge likely tomorrow -F/u in 6 weeks with OB after discharge Admission and Anticipated Discharge Date Admission Date: November 06, 2021 Supervising Physician Co-Signing Physician Notes Patient seen and evaluated and agree with the above findings and plan. Routine care Subjective Ambulation: yes Voiding: yes, sheehan removed yesterday Passing Gas: yes BM: not yet Diet Tolerance: regular Lochia: small Feeding Type: and bottle feeding Current Pain Level(1-10): 6, abdominal/pelvic increased from yesterday Review of Systems Review of Systems: Denies fevers/chills. Denies dyspnea, cough. Denies chest pain. Denies breast pain or discharge. Denies headache. Denies back pain. Denies nausea, vomiting. Physical Exam Physical Exam: General: Alert, oriented, no acute distress Cardiac: Regular rate and rhythm, normal S1, S2. No murmurs appreciated. Respiratory: Clear to auscultation, symmetric chest rise and fall. No wheezes or crackles. No increased work of breathing or accessory muscle use Abdomen: Soft, nontender, nondistended. Fundus firm and palpable at 1cm below umbilicus. No guarding or rebound. Skin: steri strips intact, incision site healing well with no signs of infection Extremities: Warm, dry. No lower extremity edema, erythema or swelling. Results & Data ([facility]) Vital Signs (Past 12 Hours) Vital Signs Temp Pulse Resp BP Pulse Ox 11/08/21 08:45 36.4 C L 79 20 133/86 11/07/21 21:20 36.8 C 86 16 133/83 95 Resident Activity Tracking Resident Involvement: Resident Care Provided Care Provided: OB Delivery
[2021-11-08] MEDS: SIMETHICONE 80 MG CHEW PO SCH ×4 (09:34→20:30)
[2021-11-08] MEDS: PRENATAL VITAMIN 1 TAB PO SCH (09:34)
[2021-11-08] MEDS: oxyCODONE HCL IR 5 MG TAB (IMMEDIATE RELEASE) PO PRN ×2 (09:35→14:54)
[2021-11-08] MEDS: IBUPROFEN 600 MG TAB PO SCH ×4 (09:35→21:31)
[2021-11-08] MEDS: FERROUS SULFATE 325 MG TAB PO SCH (09:35)
[2021-11-08] MEDS: DOCUSATE SODIUM 100 MG CAP PO SCH ×3 (09:35→20:30)
[2021-11-08] MEDS ORDERED: ACETAMINOPHEN 10MG/ML PEDIATRIC DOSING IV SCH (12:00)
[2021-11-08] MEDS: ACETAMINOPHEN 1,000 MG/100 ML VIAL IV SCH ×2 (12:34→20:30)
[2021-11-09] MEDS: IBUPROFEN 600 MG TAB PO SCH ×3 (01:30→08:58)
[2021-11-09] MEDS: ACETAMINOPHEN 1,000 MG/100 ML VIAL IV SCH (04:03)
[2021-11-09 06:19] LABS: Hematocrit (blood only) 29.4 % (37-47); Hemoglobin 9.6 g/dL (12.0-16.0)
--- NOTE | 2021-11-09 08:30 | Obstetrical Progress Note ---
Date of Service November 09, 2021 Assessment & Plan (1) Encounter for care and examination after delivery: Doing well. BP controlled. Desires DC home. Reviewed DC instructions. Followup office 6w pp. Rx percocet sent to pharmacy. Questions answered. Subjective Ambulation: ambulating normally Voiding: no voiding problems Diet Tolerance:: regular diet Lochia:: Moderate well. Review of Systems All systems reviewed & are unremarkable except as noted in HPI & below Physical Exam Constitutional WD/WN, vitals as above no acute distress Respiratory normal respiratory effort Cardiovascular Rate/Rhythm: regular rate and regular rhythm Gastrointestinal (Abdomen) Inspection/Auscultation: abdomen normal to inspection; abdomen not distended Percussion/Palpation: abdomen soft Incision CDI Genitourinary OB Exam Abdomen: + fundal height Fundus: + firm; not tender Results & Data ([facility]) Vital Signs (Past 12 Hours) Vital Signs Temp Pulse Resp BP 11/08/21 23:40 36.5 C 83 18 133/87
[2021-11-09] MEDS: SIMETHICONE 80 MG CHEW PO SCH (08:32)
[2021-11-09] MEDS: DOCUSATE SODIUM 100 MG CAP PO SCH (08:32)
[2021-11-09] MEDS: FERROUS SULFATE 325 MG TAB PO SCH (08:33)
[2021-11-09] MEDS: PRENATAL VITAMIN 1 TAB PO SCH (08:33)
--- NOTE | 2021-11-09 08:33 | Discharge Summary ---
Date of Service November 09, 2021 Admission HPI Per Admitting Provider 41yo @ 39 5/7, repeat section. AMA>40@del *Anatomy Scan @ 20wks * Echo 22-24wks - Normal ECHO *Growth scan @32wks *Weekly NST's @36 wks *Twice weekly NST @38wks *Deliver by 41 wks CHTN--on labetolol *Baby ASA daily start 12-28 wks, continue until delivery *wkly NST's @32wks and twice wkly @36 wks *Serial Growth US @ 24 (doppler only if abnml) *Baseline 24hr urine (additioinal PRN)--151mg akh *weekly SADIE's @ 32wk6D *Deliver [id number] Prior delivery @ 33 weeks prom at 30 weeks, hmc for three weeks then delivered offered [place]--considering (akh) - declines (SLN) Previous --ltcs (k), 2 fibroids (fundus and left), dense adhesions of the rectum to post utx C/S SCHEDULED FOR 11/07/[address] V[address]AFANA AND DR. WELLER ASSIST NEEDS COVID TEST ON 11/05/2021-ORDERED Fibroid uterus--one prominent 5cm right SS fibroid measured in 01/18 -stable on anatomy US - described as ant IM Obesity *BMI 35 or >At start of preg, growth US @ 32wks HSV Sickle Cell Trait--fob tested and not a carrier Covid vaccine --MOderna, second dose in January. Flu shot given 08/21/21 SB Discharge Data Consultations 11/06/21 14:46 Consult Anesthesiology Stat Procedures Performed Operation Date: 11/06/21 14:35 Actual Procedures p Section in LD for Live female at 1821(Bilateral) - Charisse Villafana DO Operation Date: 11/07/21 07:30 <No data on this case meets the specified criteria> Hospital Course (1) Chronic hypertension affecting : Admitted after repeat section, routine postop recovery, DC home POD3. Followup 6w in office. Please see chart for further details. (2) Previous delivery affecting , antepartum: Coding Level of Care Code None Diagnoses Chronic hypertension affecting O10.919 Previous delivery affecting , antepartum O34.219
[2021-11-09] MEDS: oxyCODONE HCL IR 5 MG TAB (IMMEDIATE RELEASE) PO PRN (08:57)
== END 2021-11-09 11:00 | disposition home or self-care (01) | DRG 788 ==
LOC: 4S1 14:02 → 4S2 22:30 → EDSTATUS 11-07 07:30